=== PATIENT | female | born 1975 | race American Indian/Alaskan Native ===

== ENCOUNTER 2017-09-12 08:41 | Emergency (ER) | payer BC ==
[2017-09-12 09:05] VITALS: BP 178/68
--- NOTE | 2017-09-12 11:03 | Emergency Department Report ---
Minor Respiratory - HPI Chief Complaint: Upper Respiratory Infection Stated Complaint: COUGH Time Seen by Provider: 09/12/17 09:49 Duration: 6 days Pain Location: Other (cough and congestion) Severity: mild Minor Respiratory: Yes Rhinorrhea, Yes Able to Tolerate Fluids, Yes Cough, Yes Sick Contacts, No Sore Throat, No Ear Pain, No Hemoptysis, No Chest Pain, No Shortness of Breath, No Fever Other History: This is a 41 y.o. female that presents with cough and congestion for 6 days. History of hypertension. Patient went to Urgent Care Thursday and given medrol dose pack and benzonatate for URI. Patients reports coughing up yellow mucous and feeling chest tightness with each cough. States she is feeling better but wanted to know why she can't stop coughing. Denies chest pain , SOB, weakness, fever, nausea, vomiting, or abdominal pain. ED Review of Systems ROS: Stated complaint: COUGH Other details as noted in HPI Constitutional: denies: chills, fever ENT: congestion. denies: ear pain, throat pain, dental pain, hearing loss, epistaxis Respiratory: cough. denies: orthopnea, shortness of breath, SOB with exertion, SOB at rest, stridor, wheezing Cardiovascular: denies: chest pain, palpitations Endocrine: no symptoms reported Gastrointestinal: denies: abdominal pain, nausea, diarrhea Musculoskeletal: denies: back pain, joint swelling, arthralgia, myalgia Neurological: denies: headache, weakness, numbness, paresthesias Psychiatric: denies: anxiety, depression ED Past Medical Hx - Past Medical History Previous Medical History?: No - Surgical History Past Surgical History?: Yes Additional Surgical History: x 2 - Social History Smoking Status: Never Smoker Substance Use Type: None - Medications Home Medications: Home Medications Medication Instructions Recorded Confirmed Last Taken Type Pseudoeph/Dm/Guaifen/Acetamin 1 each PO BID 7 Days #14 tablet 09/12/17 Unknown Rx [Duraflu [id number] mg Tab] Minor Respiratory Exam - Exam General: Vital signs noted. No distress. Alert and acting appropriately. HEENT: Yes Moist Mucous Membranes, Yes Rhinorrhea, No Pharyngeal Erythema, No Pharyngeal Exudates, No Conjuctival Injection, No Frontal Tenderness, No Maxillary Tenderness Ear: Neither TM Bulge, Neither TM Erythema, Neither EAC Pain, Neither EAC Discharge Neck: Yes Supple, No Adenopathy Lungs: Yes Good Air Exchange, Yes Cough, No Wheezes, No Ronchi, No Stridor, No Labored Respirations, No Retractions, No Use of Accessory Muscles, No Other Abnormal Lung Sounds Heart: Yes Regular, No Murmur Abdomen: Yes Normal Bowel Sounds, No Tenderness, No Peritoneal Signs Skin: No Rash, No Edema Neurologic: Alert and oriented, no deficits. Musculoskeletal: Unremarkable. ED Course Vital Signs 09/12/17 09/12/17 09:03 09:12 Temperature 98.6 F 98.6 F Pulse Rate 72 72 Respiratory 18 18 Rate Blood Pressure 178/68 Blood Pressure 178/68 [Right] O2 Sat by Pulse 100 Oximetry ED Medical Decision Making - Medical Decision Making This is a 41 y.o. female that presents with cough and congestion for 6 days. Currently taking medrol dose pack and benzonatate from Urgent Care. Patient examined by me and stable. No distress noted. No labs or radiograph ordered. Vitals stable. Normal assessment. Discharged home. Encouraged to do supportive care for URI. Start Return to work tomorrow. Critical care attestation.: If time is entered above; I have spent that time in minutes in the direct care of this critically ill patient, excluding procedure time. ED Disposition Clinical Impression: URI (upper respiratory infection) Qualifiers: URI type: acute nasopharyngitis (common cold) Qualified Code(s): J00 - Acute nasopharyngitis [common cold] Disposition: TO HOME OR SELFCARE Is pt being admited?: No Does the pt Need Aspirin: No Condition: Stable Instructions: Upper Respiratory Infection (ED), Cold Symptoms (ED) Additional Instructions: Increase fluid intake and rest. Wash hands frequently. Continue taking tylenol or ibuprofen to control fever. F/U with Primary Care Provider in 2-3 days. Return to ER if fever, SOB, or difficulty breathing after 48 hours of supportive care. Prescriptions: Pseudoeph/Dm/Guaifen/Acetamin [Duraflu [id number] mg Tab] 1 each PO BID 7 Days #14 tablet Referrals: [facility] [Outside] - 3-5 Days [facility] [Outside] - 3-5 Days [facility] [Outside] - 3-5 Days Forms: Work/School Release Form(ED) Time of Disposition: 11:05 Print Language: GREEK
== END 2017-09-12 11:15 | disposition home or self-care (01) ==
LOC: ED 08:41
DX: J06.9 Acute upper respiratory infection, unspecified (principal)
CPT/HCPCS: 99282

== ENCOUNTER 2017-11-17 22:04 | Inpatient (IN) | payer BC ==
[2017-11-17] MEDS ORDERED: ASPIRIN PO ONE (22:20)
[2017-11-17 23:16] LABS: Hematocrit 22.9 % (30.3-42.9); Hemoglobin 6.2 gm/dl (10.1-14.3); Mean Corpuscular HGB Conc 27 % (30-34); Mean Corpuscular Hemoglobin 14 pg (28-32); Mean Corpuscular Volume 53 fl (79-97); Red Blood Count 4.31 M/mm3 (3.65-5.03); Red Cell Distribution Width 29.1 % (13.2-15.2)
[2017-11-17 23:19] LABS: Platelet Count 1388 K/mm3 (140-440)
[2017-11-17 23:34] LABS: BUN/Creatinine Ratio 18; Blood Urea Nitrogen 14 mg/dL (7-17); Calcium 9.2 mg/dL (8.4-10.2); Hemolysis Index 0
--- NOTE | 2017-11-18 00:20 | Emergency Department Report ---
ED Chest Pain HPI - General Chief Complaint: Chest Pain Stated Complaint: CHEST PAIN, BACK PAIN Time Seen by Provider: 11/18/17 00:15 Source: patient Mode of arrival: Ambulatory Limitations: No Limitations - History of Present Illness MD Complaint: chest pain -: Gradual Onset: during rest Pain Location: substernal, left chest Pain Radiation: none Severity: moderate Severity scale (0 -10): 5 Quality: heaviness, sharp Consistency: constant Improves With: nothing Worsens With: nothing re: denies: nausea, vomting Other Symptoms: denies: cough Treatments Prior to Arrival: none Aspirin use within the Past 7 Days: (1) Yes - Related Data On Oral Contraceptives: No Previous Rx's Medication Instructions Recorded Last Taken Type Pseudoeph/Dm/Guaifen/Acetamin 1 each PO BID 7 Days #14 tablet 09/12/17 Unknown Rx [Duraflu [id number] mg Tab] Allergies Allergy/AdvReac Type Severity Reaction Status Date / Time No Known Allergies Allergy Verified 11/17/17 22:14 Heart Score - HEART Score History: Moderately suspicious EKG: Non-specific Age: < 45 Risk factors: No known risk factors Troponin: < normal limit HEART Score: 2 - Critical Actions Critical Actions: 0-3 pts:0.9-1.7%risk of adverse cardiac event.Candidate for discharge ED Review of Systems ROS: Stated complaint: CHEST PAIN, BACK PAIN Other details as noted in HPI Comment: All other systems reviewed and negative Constitutional: denies: chills, fever Eyes: denies: eye pain, vision change ENT: denies: ear pain Respiratory: shortness of breath. denies: cough Cardiovascular: chest pain. denies: palpitations Endocrine: no symptoms reported Gastrointestinal: denies: abdominal pain, nausea, vomiting, diarrhea Genitourinary: denies: dysuria, frequency Musculoskeletal: denies: back pain, joint swelling Skin: denies: rash, change in color Neurological: denies: headache, numbness, paresthesias Psychiatric: denies: anxiety, depression Hematological/Lymphatic: denies: easy bleeding, easy bruising ED Past Medical Hx - Past Medical History Hx Hypertension: Yes - Surgical History Additional Surgical History: x 2 - Social History Smoking Status: Never Smoker Substance Use Type: Alcohol - Medications Home Medications: Home Medications Medication Instructions Recorded Confirmed Last Taken Type Pseudoeph/Dm/Guaifen/Acetamin 1 each PO BID 7 Days #14 tablet 09/12/17 Unknown Rx [Duraflu [id number] mg Tab] ED Physical Exam - General Limitations: No Limitations General appearance: alert, in no apparent distress - Head Head exam: Present: atraumatic, normocephalic, normal inspection - Eye Eye exam: Present: normal appearance, PERRL, EOMI Pupils: Present: normal accommodation - ENT ENT exam: Present: normal exam, normal orophraynx, mucous membranes moist - Neck Neck exam: Present: normal inspection, full ROM. Absent: tenderness - Respiratory Respiratory exam: Present: normal lung sounds bilaterally. Absent: wheezes, rhonchi - Cardiovascular Cardiovascular Exam: Present: regular rate, normal rhythm, normal heart sounds - GI/Abdominal GI/Abdominal exam: Present: soft, normal bowel sounds. Absent: distended, tenderness, guarding, rebound - Rectal Rectal exam: Present: normal inspection, normal rectal tone, heme (-) stool, hemorrhoids (External ), other (Femal Charperone was MS. Rigo RN.). Absent : bloody stool, tenderness - Extremities Exam Extremities exam: Present: normal inspection, full ROM, normal capillary refill. Absent: tenderness - Back Exam Back exam: Present: normal inspection, full ROM. Absent: tenderness - Neurological Exam Neurological exam: Present: alert, oriented X3, CN II-XII intact - Psychiatric Psychiatric exam: Present: normal affect, normal mood. Absent: depressed, anxious - Skin Skin exam: Present: warm, dry, intact, normal color. Absent: rash ED Course Vital Signs 11/17/17 22:15 Temperature 99.8 F H Pulse Rate 99 H Respiratory 18 Rate Blood Pressure 176/80 O2 Sat by Pulse 100 Oximetry - Reevaluation(s) Reevaluation #1: 11/18/17 01:59 I discussed outpatient care with the hospitalist on-call Dr Coronado. He will admit the patient to the hospital for further evaluation and management. JUSTO score - Justo Score Age > 65: (0) No Aspirin use within the Past 7 Days: (1) Yes 3 or more CAD Risk Factors: (0) No 2 or more Angina events in past 24 hrs: (0) No Known CAD with more than 50% Stenosis: (0) No Elevated Cardiac Markers: (0) No ST Deviation Greater than 0.5mm: (0) No JUSTO Score: 1 ED Medical Decision Making - Lab Data Result diagrams: 11/17/17 22:49 11/17/17 22:49 - EKG Data -: EKG Interpreted by Me EKG shows normal: sinus rhythm Rate: normal (98) - EKG Data When compared to previous EKG there are: previous EKG unavailable Interpretation: nonspecific ST-T wave josse, other (Incomplete RBBB.) - Radiology Data Radiology results: report reviewed, image reviewed - Medical Decision Making Chest Pain. Critical care attestation.: If time is entered above; I have spent that time in minutes in the direct care of this critically ill patient, excluding procedure time. ED Disposition Clinical Impression: Thrombocytosis, Symptomatic anemia Chest pain Qualifiers: Chest pain type: unspecified Qualified Code(s): R07.9 - Chest pain, unspecified Disposition: OP ADMIT IP TO THIS HOSP Is pt being admited?: Yes Does the pt Need Aspirin: Yes Condition: Stable Instructions: Chest Pain (ED) Referrals: PRIMARY CARE, [Primary Care Provider] - 3-5 Days Time of Disposition: 00:49
[2017-11-18] MEDS ORDERED: ASPIRIN ONE (00:30)
[2017-11-18] MEDS ORDERED: MORPHINE IV ONE (00:45)
[2017-11-18] MEDS ORDERED: ZOFRAN ODT PO ONE (00:46)
[2017-11-18] MEDS ORDERED: NACL 0.9% 500 ML 500 ML IV ONE (00:48)
[2017-11-18 01:26] LABS: Band Neutrophils # (Manual) 0.6 K/mm3; Monocytes % (Manual) 0 % (0.0-7.3); Total Cells Counted 200
[2017-11-18 01:28] LABS: Anisocytosis 3+; Hypochromasia 3+; Platelet Estimate Appears Increased
[2017-11-18 01:33] LABS: INR 1.11 (0.87-1.13)
[2017-11-18 01:34] LABS: Partial Thromboplastin Time 38.7 Sec. (24.2-36.6)
[2017-11-18 01:40] LABS: Bilirubin,Urine NEG (Negative); Blood,Urine MOD (Negative); Color,Urine Yellow (Yellow); HCG Qualitative,Urine Negative (Negative); Mucus,Urine FEW /HPF; Protein,Urine <15 mg/dL mg/dL (Negative); Urobilinogen,Urine < 2.0 mg/dL (<2.0)
[2017-11-18] MEDS ORDERED: ZOFRAN ONE ×3 (02:58→08:11)
[2017-11-18] MEDS ORDERED: MORPHINE ONE ×3 (02:58→08:12)
[2017-11-18] MEDS ORDERED: NACL 0.9% 500 ML 500 ML ONE ×2 (02:59→03:48)
[2017-11-18] MEDS ORDERED: NITRO-BID 2% TP ONE (04:10)
[2017-11-18] MEDS ORDERED: TYLENOL ONE (04:20)
[2017-11-18] MEDS: NITRO-BID 2% TP SCH ×4 (04:33→19:00)
[2017-11-18] MEDS: ZOFRAN IV PRN (08:12)
[2017-11-18] MEDS: MORPHINE IV PRN ×4 (08:14→21:24)
[2017-11-18] MEDS ORDERED: LEXISCAN IV NR (09:44)
[2017-11-18] MEDS ORDERED: ROCEPHIN/NS 1 GM/50 ML 1 GM/50 ML BAG IV SCH (10:00)
[2017-11-18] MEDS: cefTRIAXone 1 GM in NACL 0.9% 20 ML IV SCH (12:00)
[2017-11-18] MEDS: ASPIRIN PO SCH (12:00)
--- NOTE | 2017-11-18 13:16 | History and Physical Report ---
CHIEF COMPLAINT: Chest pain. Other complaint includes back pain and weakness. HISTORY OF PRESENT ILLNESS: The patient is a 42-year-old female, who presented to the Emergency Room complaining of substernal chest pain that does not radiate with severity of 5/0-10 and appears as sharp pain and also heaviness. The pain is not affected by movement or breathing. The pain is associated with shortness of breath, nausea, vomiting, and headache. There is no history of dizziness. No history of cough, fever, or chills. The patient also admitted to having heavy menstrual bleeding. PAST MEDICAL HISTORY: Pertinent for hypertension, anemia, and heavy menstrual cycle. PAST SURGICAL HISTORY: Pertinent for C-sections x 2. FAMILY HISTORY: Noncontributory. SOCIAL HISTORY: The patient does not smoke, drinks alcohol occasionally. Does not use illicit drugs. MEDICATIONS: The patient is on Duraflu 325 x 20 x 200 x 60 mg 1 by mouth twice daily. ALLERGIES: There are no known drug allergies. REVIEW OF SYSTEMS: CONSTITUTIONAL: There is no fever, no chills, no diaphoresis. HEENT: There is headache, but no sore throat. CARDIOVASCULAR SYSTEM: Chest pain is present and there is no orthopnea. RESPIRATORY SYSTEM: Shortness of breath is present. There is no cough. GASTROINTESTINAL SYSTEM: There is history of nausea and vomiting, but no abdominal pain, no diarrhea or constipation. NEUROLOGICAL: There is no numbness, no dizziness, no altered mental status, though she has headache. MUSCULOSKELETAL SYSTEM: There is no joint pain or swelling. DERMATOLOGICAL SYSTEM: There is no skin rash or itching. GENITOURINARY SYSTEM: There is no dysuria, hematuria, or flank pain. Rest of system review is normal. PHYSICAL EXAMINATION: GENERAL: At the time of exam, the patient was found to be alert, oriented x 3 and not in acute distress. VITAL SIGNS: Shows temperature of 99.8, pulse of 91, blood pressure 161/71, O2 sat of 99% to 100% on room air. HEENT: Showed pupils to be equal, round, reactive to light and accommodation. Extraocular muscles are intact. NECK: Supple with no JVD or carotid bruit. CARDIOVASCULAR system: Show normal first and second heart sounds with no gallops or murmur. RESPIRATORY SYSTEM: Show good air entry on both sides of the lungs with no abnormal breath sounds. GASTROINTESTINAL SYSTEM: Show abdomen to be full, soft, nontender with no organomegaly or rigidity. NEUROLOGICAL SYSTEM: Show no focal deficits. MUSCULOSKELETAL SYSTEM: Show no joint swelling. DERMATOLOGICAL SYSTEM: Show no skin rash. GENITOURINARY SYSTEM: Showing no costovertebral angle tenderness. PERTINENT LABORATORY AND IMAGING STUDIES: The patient has no imaging studies done at this time. The patient's lab test shows CBC with high white count of 22 ,000, low hemoglobin of 6.2, low hematocrit of 22.9 with very high platelet count of 1388 which is marked as highly critical suggestive of thrombocythemia. CBC differential showed high segmented neutrophil of 90% and also the basophil show a high differential count of 2%. The patient's coagulation studies were unremarkable. Chemistry came back unremarkable except for low CO2 of 20. The patient's urinalysis show high urine leukocyte esterase and high urine wbc's of 62 as well as high urine rbc's with negative urine nitrite and negative urine test. DIAGNOSES: 1.Atypical Chest pain. 2. Anemia. 3. Urinary tract infection. 4. Thrombocythemia. PLAN: The patient will be admitted to medical floor on telemetry and will remain n.p.o. for Lexiscan stress test in the morning. Care of plan: 1. The patient will have cardiac enzymes involving troponin, total CK, and CK- MB checked q.6 hours x 2 more levels. 2. The patient will continue the order for blood transfusion requested in the Emergency Room. 3. The patient will have CBC checked in the morning without differential. 4. The patient will be on Tylenol 650 mg by mouth every 4 hours for fever and headache and will be on aspirin 325 mg by mouth daily. 5. The patient will be on IV ceftriaxone 1 gram daily for treatment of UTI. 6. The patient will be on IV morphine 2 mg every 3 hours as needed for pain. 7. The patient will be on Zofran 4 mg IV every 8 hours as needed for nausea and vomiting. 8. The patient will be on nitro paste half inch to anterior chest wall t.i.d. MTDD
[2017-11-18 13:29] LABS: Mean Corpuscular HGB Conc 29 % (30-34); Red Blood Count 4.94 M/mm3 (3.65-5.03)
[2017-11-18 13:31] LABS: Hematocrit 29.5 % (30.3-42.9); Hemoglobin 8.6 gm/dl (10.1-14.3); Mean Corpuscular Hemoglobin 17 pg (28-32); Mean Corpuscular Volume 60 fl (79-97); Red Cell Distribution Width 36.5 % (13.2-15.2)
[2017-11-18 13:33] LABS: Platelet Count 1238 K/mm3 (140-440)
[2017-11-18 13:50] LABS: Creatine Kinase MB < 1.0 ng/mL (0.0-4.0)
[2017-11-18 14:18] LABS: Band Neutrophils # (Manual) 0.6 K/mm3; Eosinophils % (Manual) 0 % (0.0-4.3); Total Cells Counted 100
[2017-11-18 14:21] LABS: Anisocytosis 2+; Hypochromasia 2+; Poikilocytosis 2+
[2017-11-18 14:22] LABS: Ovalocytes 1+; Tear Drop Cells 1+
[2017-11-18 14:23] LABS: Platelet Estimate Appe
--- NOTE | 2017-11-18 16:17 | Event Note ---
Date: 11/18/17 Patient was seen and evaluated this morning, patient was admitted this morning. H&P, imaging and labs were reviewed. Patient has chest pain, stress test done. Patient has severe anemia and transfused with 1 unit of blood and posttransfusion hemoglobin is stable.
[2017-11-18] MEDS: NORVASC PO SCH (17:34)
[2017-11-19] MEDS: MORPHINE IV PRN ×2 (04:51→09:18)
[2017-11-19] MEDS: NITRO-BID 2% TP SCH (06:47)
[2017-11-19 08:30] LABS: BUN/Creatinine Ratio 14; Blood Urea Nitrogen 11 mg/dL (7-17); Calcium 8.8 mg/dL (8.4-10.2); Hemolysis Index 99
[2017-11-19 08:38] LABS: Hematocrit 29.2 % (30.3-42.9); Hemoglobin 8.1 gm/dl (10.1-14.3); Mean Corpuscular HGB Conc 28 % (30-34); Mean Corpuscular Hemoglobin 17 pg (28-32); Mean Corpuscular Volume 61 fl (79-97); Red Blood Count 4.79 M/mm3 (3.65-5.03); Red Cell Distribution Width 35.9 % (13.2-15.2)
--- NOTE | 2017-11-19 09:02 | Treadmill Report ---
ORDERING PHYSICIAN: Sara Carolina MD INDICATION: Chest pain. FINDINGS: There is no scintigraphic evidence of myocardial ischemia. There is a small fixed mild anterior wall defect due to overlying breast attenuation artifact. The left ventricle is normal in size and systolic function. The left ventricular ejection fraction is 66%. There is normal wall motion and wall thickening noted on gated imaging. CONCLUSION: 1. This is a low risk myocardial perfusion scan associated with 1-year cardiovascular event rate of less than 1%. 2. No scintigraphic evidence of myocardial ischemia. 3. Small and mild fixed anterior wall defect due to overlying breast attenuation artifact. 4. Normal left ventricular size and systolic function. [facility]
[2017-11-19] MEDS ORDERED: APRESOLINE IV PRN (09:15)
[2017-11-19] MEDS: ASPIRIN PO SCH (09:21)
[2017-11-19] MEDS: NORVASC PO SCH (09:21)
[2017-11-19] MEDS: TYLENOL PO PRN ×2 (09:22)
[2017-11-19] MEDS: cefTRIAXone 1 GM in NACL 0.9% 20 ML IV SCH (11:00)
[2017-11-19] MEDS: ZOFRAN IV PRN (11:35)
--- NOTE | 2017-11-19 12:21 | Hem/Onc Consultation ---
History of Present Illness - Reason for Consult Consult date: 11/19/17 - History of Present Illness dictated Medications and Allergies Allergies Allergy/AdvReac Type Severity Reaction Status Date / Time No Known Allergies Allergy Verified 11/17/17 22:14 Home Medications Medication Instructions Recorded Confirmed Last Taken Type No Known Home Medications [No 11/18/17 11/18/17 Unknown History Reported Home Medications] Active Meds: Active Medications Acetaminophen (Tylenol) 650 mg PO Q4H PRN PRN Reason: For Pain/Fever/Headache Last Admin: 11/19/17 09:22 Dose: 650 mg Amlodipine Besylate (Norvasc) 5 mg PO QDAY [facility] Last Admin: 11/19/17 09:21 Dose: 5 mg Aspirin (Aspirin) 325 mg PO QDAY [facility] Last Admin: 11/19/17 09:21 Dose: 325 mg Hydralazine HCl (Apresoline) 20 mg IV Q4HR PRN PRN Reason: Hypertension Last Admin: 11/19/17 10:38 Dose: 20 mg Ceftriaxone Sodium 1 gm/ (Sodium Chloride) 20 mls @ 2 mls/min IV Q24HR [facility] Last Admin: 11/18/17 12:00 Dose: 2 mls/min Ondansetron HCl (Zofran) 4 mg IV Q8H PRN PRN Reason: Nausea And Vomiting Last Admin: 11/19/17 11:35 Dose: 4 mg Oxycodone/Acetaminophen (Percocet 5/325) 2 tab PO Q6H PRN PRN Reason: Pain, Moderate (4-6) Exam - Constitutional Vitals: Last Vital Signs Temp 99.4 F 11/19/17 06:58 Pulse 102 H 11/19/17 10:38 Resp 20 11/19/17 06:58 BP 197/90 11/19/17 10:38 Pulse Ox 96 11/19/17 08:00 Results - Labs lab Results: Laboratory Results - last 24 hr 11/18/17 11/18/17 11/19/17 12:56 12:56 07:15 WBC 20.7 H 22.7 H RBC 4.94 4.79 Hgb 8.6 L 8.1 L Hct 29.5 L D 29.2 L MCV 60 L 61 L MCH 17 L 17 L MCHC 29 L 28 L RDW 36.5 H 35.9 H Plt Count 1238 H* Add Manual Diff Complete Total Counted 100 Seg Neuts % (Manual) 82.0 H Band Neutrophils % 3.0 Lymphocytes % (Manual) 7.0 L Reactive Lymphs % (Man) 0 Monocytes % (Manual) 4.0 Eosinophils % (Manual) 0 Basophils % (Manual) 3.0 H Metamyelocytes % 1.0 Myelocytes % 0 Promyelocytes % 0 Blast Cells % 0 Nucleated RBC % 2.0 H Seg Neutrophils # Man 17.0 H Band Neutrophils # 0.6 Lymphocytes # (Manual) 1.4 Abs React Lymphs (Man) 0.0 Monocytes # (Manual) 0.8 Eosinophils # (Manual) 0.0 Basophils # (Manual) 0.6 H Metamyelocytes # 0.2 Myelocytes # 0.0 Promyelocytes # 0.0 Blast Cells # 0.0 WBC Morphology Not Reportable Hypersegmented Neuts Not Reportable Hyposegmented Neuts Not Reportable Hypogranular Neuts Not Reportable Smudge Cells Not Reportable Toxic Granulation Not Reportable Toxic Vacuolation Not Reportable Dohle Bodies Not Reportable Pelger-Huet Anomaly Not Reportable Harpal Rods Not Reportable Platelet Estimate Appe Clumped Platelets Not Reportable Plt Clumps, EDTA Not Reportable Large Platelets Not Reportable Giant Platelets Not Reportable Platelet Satelliting Not Reportable Plt Morphology Comment Not Reportable RBC Morphology Not Reportable Dimorphic RBCs Not Reportable Polychromasia Few Hypochromasia 2+ Poikilocytosis 2+ Anisocytosis 2+ Microcytosis 2+ Macrocytosis Not Reportable Spherocytes Not Reportable Pappenheimer Bodies Not Reportable Sickle Cells Not Reportable Target Cells Not Reportable Tear Drop Cells 1+ Ovalocytes 1+ Helmet Cells Not Reportable [place] Bodies Not Reportable [place] Rings Not Reportable [place] Cells Not Reportable Bite Cells Not Reportable Crenated Cell Not Reportable Elliptocytes 1+ Acanthocytes (Spur) Not Reportable Rouleaux Not Reportable Hemoglobin C Crystals Not Reportable Schistocytes Not Reportable Malaria parasites Not Reportable Rakesh Bodies Not Reportable Hem Pathologist Commnt No Sodium Potassium Chloride Carbon Dioxide Anion Gap BUN Creatinine Estimated GFR BUN/Creatinine Ratio Glucose Calcium Total Creatine Kinase 62 CK-MB (CK-2) < 1.0 CK-MB (CK-2) Rel Index 1.6 Troponin T < 0.010 11/19/17 07:15 WBC RBC Hgb Hct MCV MCH MCHC RDW Plt Count Add Manual Diff Total Counted Seg Neuts % (Manual) Band Neutrophils % Lymphocytes % (Manual) Reactive Lymphs % (Man) Monocytes % (Manual) Eosinophils % (Manual) Basophils % (Manual) Metamyelocytes % Myelocytes % Promyelocytes % Blast Cells % Nucleated RBC % Seg Neutrophils # Man Band Neutrophils # Lymphocytes # (Manual) Abs React Lymphs (Man) Monocytes # (Manual) Eosinophils # (Manual) Basophils # (Manual) Metamyelocytes # Myelocytes # Promyelocytes # Blast Cells # WBC Morphology Hypersegmented Neuts Hyposegmented Neuts Hypogranular Neuts Smudge Cells Toxic Granulation Toxic Vacuolation Dohle Bodies Pelger-Huet Anomaly Harpal Rods Platelet Estimate Clumped Platelets Plt Clumps, EDTA Large Platelets Giant Platelets Platelet Satelliting Plt Morphology Comment RBC Morphology Dimorphic RBCs Polychromasia Hypochromasia Poikilocytosis Anisocytosis Microcytosis Macrocytosis Spherocytes Pappenheimer Bodies Sickle Cells Target Cells Tear Drop Cells Ovalocytes Helmet Cells [place] Bodies [place] Rings [place] Cells Bite Cells Crenated Cell Elliptocytes Acanthocytes (Spur) Rouleaux Hemoglobin C Crystals Schistocytes Malaria parasites Rakesh Bodies Hem Pathologist Commnt Sodium 137 Potassium 4.0 Chloride 103.5 Carbon Dioxide 19 L Anion Gap 19 BUN 11 Creatinine 0.8 Estimated GFR > 60 BUN/Creatinine Ratio 14 Glucose 74 Calcium 8.8 Total Creatine Kinase CK-MB (CK-2) CK-MB (CK-2) Rel Index Troponin T
[2017-11-19 12:45] LABS: Anisocytosis 2+; Eosinophils % (Manual) 0 % (0.0-4.3); Poikilocytosis 2+; Total Cells Counted 100
[2017-11-19 12:46] LABS: Hypochromasia 2+; Ovalocytes 1+; Tear Drop Cells 1+; Toxic Vacuolation 1+
[2017-11-19 12:47] LABS: Platelet Estimate Cons
[2017-11-19] MEDS: PERCOCET 5/325 PO PRN ×2 (12:59→19:16)
[2017-11-19 13:19] LABS: Platelet Count 650 K/mm3 (140-440)
[2017-11-19 15:35] LABS: % Iron Saturation 2.64 %
--- NOTE | 2017-11-19 16:22 | Progress Note ---
Assessment and Plan Assessment and plan: 42-year-old -Citizen Of [place] female with past medical history significant for morbid obesity presented to the emergency department complaining of chest and back pain Cardiac enzymes are negative, stress test was done and no acute ischemia seen. CTA was ordered and result is pending. - Pain control Sepsis secondary to UTI - evidenced by leukocytosis, fever and tachycardia - still shooting fever, urine culture and culture ordered Thrombocytosis - Hematology oncology consulted DVT prophylaxis History Interval history: patient was seen and evaluated this morning, patient still complaining chest and back pain. Hospitalist Physical - Physical exam Narrative exam: Not in cardiopulmonary distress. The patient is morbidly obese. Vital signs as documented. Head exam is unremarkable. No scleral icterus . Neck is without jugular venous distension, thyromegaly, or carotid bruits. Lungs are clear to auscultation. Cardiac exam reveals regular rate and Rhythm. First and second heart sounds normal. No murmurs, rubs or gallops. Abdominal exam reveals normal bowel sounds, no masses, no organomegaly and no aortic enlargement. Extremities are nonedematous and both femoral and pedal pulses are normal. ANIMAL RESEARCHER: Alert and oriented 3. No focal weakness. - Constitutional Vitals: Temp Pulse Resp BP Pulse Ox 99.4 F 102 H 20 197/90 96 11/19/17 06:58 11/19/17 10:38 11/19/17 06:58 11/19/17 10:38 11/19/17 08:00 Results - Labs CBC & Chem 7: 11/19/17 07:15 11/19/17 07:15 Labs: Laboratory Last Values WBC 22.7 K/mm3 (4.5-11.0) H 11/19/17 07:15 RBC 4.79 M/mm3 (3.65-5.03) 11/19/17 07:15 Hgb 8.1 gm/dl (10.1-14.3) L 11/19/17 07:15 Hct 29.2 % (30.3-42.9) L 11/19/17 07:15 MCV 61 fl (79-97) L 11/19/17 07:15 MCH 17 pg (28-32) L 11/19/17 07:15 MCHC 28 % (30-34) L 11/19/17 07:15 RDW 35.9 % (13.2-15.2) H 11/19/17 07:15 Plt Count 650 K/mm3 (140-440) H 11/19/17 07:15 Add Manual Diff Complete 11/19/17 07:15 Total Counted 100 11/19/17 07:15 Seg Neuts % (Manual) 80.0 % (40.0-70.0) H 11/19/17 07:15 Band Neutrophils % 0 % 11/19/17 07:15 Lymphocytes % (Manual) 10.0 % (13.4-35.0) L 11/19/17 07:15 Reactive Lymphs % (Man) 0 % 11/19/17 07:15 Monocytes % (Manual) 5.0 % (0.0-7.3) 11/19/17 07:15 Eosinophils % (Manual) 0 % (0.0-4.3) 11/19/17 07:15 Basophils % (Manual) 4.0 % (0.0-1.8) H 11/19/17 07:15 Metamyelocytes % 1.0 % 11/19/17 07:15 Myelocytes % 0 % 11/19/17 07:15 Promyelocytes % 0 % 11/19/17 07:15 Blast Cells % 0 % 11/19/17 07:15 Nucleated RBC % Not Reportable 11/19/17 07:15 Seg Neutrophils # Man 18.2 K/mm3 (1.8-7.7) H 11/19/17 07:15 Band Neutrophils # 0.0 K/mm3 11/19/17 07:15 Lymphocytes # (Manual) 2.3 K/mm3 (1.2-5.4) 11/19/17 07:15 Abs React Lymphs (Man) 0.0 K/mm3 11/19/17 07:15 Monocytes # (Manual) 1.1 K/mm3 (0.0-0.8) H 11/19/17 07:15 Eosinophils # (Manual) 0.0 K/mm3 (0.0-0.4) 11/19/17 07:15 Basophils # (Manual) 0.9 K/mm3 (0.0-0.1) H 11/19/17 07:15 Metamyelocytes # 0.2 K/mm3 11/19/17 07:15 Myelocytes # 0.0 K/mm3 11/19/17 07:15 Promyelocytes # 0.0 K/mm3 11/19/17 07:15 Blast Cells # 0.0 K/mm3 11/19/17 07:15 Pathologist Review 11/17/17 22:49 WBC Morphology Not Reportable 11/19/17 07:15 Hypersegmented Neuts Not Reportable 11/19/17 07:15 Hyposegmented Neuts Not Reportable 11/19/17 07:15 Hypogranular Neuts Not Reportable 11/19/17 07:15 Smudge Cells Not Reportable 11/19/17 07:15 Toxic Granulation Not Reportable 11/19/17 07:15 Toxic Vacuolation 1+ 11/19/17 07:15 Dohle Bodies Not Reportable 11/19/17 07:15 Pelger-Huet Anomaly Not Reportable 11/19/17 07:15 Harpal Rods Not Reportable 11/19/17 07:15 Platelet Estimate Cons 11/19/17 07:15 Clumped Platelets Not Reportable 11/19/17 07:15 Plt Clumps, EDTA Not Reportable 11/19/17 07:15 Large Platelets Not Reportable 11/19/17 07:15 Giant Platelets Not Reportable 11/19/17 07:15 Platelet Satelliting Not Reportable 11/19/17 07:15 Plt Morphology Comment Not Reportable 11/19/17 07:15 RBC Morphology Not Reportable 11/19/17 07:15 Dimorphic RBCs Not Reportable 11/19/17 07:15 Polychromasia Few 11/19/17 07:15 Hypochromasia 2+ 11/19/17 07:15 Poikilocytosis 2+ 11/19/17 07:15 Anisocytosis 2+ 11/19/17 07:15 Microcytosis 2+ 11/19/17 07:15 Macrocytosis Not Reportable 11/19/17 07:15 Spherocytes Not Reportable 11/19/17 07:15 Pappenheimer Bodies Not Reportable 11/19/17 07:15 Sickle Cells Not Reportable 11/19/17 07:15 Target Cells Not Reportable 11/19/17 07:15 Tear Drop Cells 1+ 11/19/17 07:15 Ovalocytes 1+ 11/19/17 07:15 Helmet Cells Not Reportable 11/19/17 07:15 [place] Bodies Not Reportable 11/19/17 07:15 [place] Rings Not Reportable 11/19/17 07:15 [place] Cells Not Reportable 11/19/17 07:15 Bite Cells Not Reportable 11/19/17 07:15 Crenated Cell Not Reportable 11/19/17 07:15 Elliptocytes 1+ 11/19/17 07:15 Acanthocytes (Spur) Not Reportable 11/19/17 07:15 Rouleaux Not Reportable 11/19/17 07:15 Hemoglobin C Crystals Not Reportable 11/19/17 07:15 Schistocytes Not Reportable 11/19/17 07:15 Malaria parasites Not Reportable 11/19/17 07:15 Percent Retic 2.50 % (0.78-2.58) 11/19/17 13:10 Rakesh Bodies Not Reportable 11/19/17 07:15 Hem Pathologist Commnt No 11/19/17 07:15 PT 14.9 Sec. (12.2-14.9) 11/18/17 00:24 INR 1.11 (0.87-1.13) 11/18/17 00:24 APTT 38.7 Sec. (24.2-36.6) H 11/18/17 00:24 Sodium 137 mmol/L (137-145) 11/19/17 07:15 Potassium 4.0 mmol/L (3.6-5.0) 11/19/17 07:15 Chloride 103.5 mmol/L (98-107) 11/19/17 07:15 Carbon Dioxide 19 mmol/L (22-30) L 11/19/17 07:15 Anion Gap 19 mmol/L 11/19/17 07:15 BUN 11 mg/dL (7-17) 11/19/17 07:15 Creatinine 0.8 mg/dL (0.7-1.2) 11/19/17 07:15 Estimated GFR > 60 ml/min 11/19/17 07:15 BUN/Creatinine Ratio 14 % 11/19/17 07:15 Glucose 74 mg/dL (65-100) 11/19/17 07:15 Calcium 8.8 mg/dL (8.4-10.2) 11/19/17 07:15 Iron 10 ug/dL (37-170) L 11/19/17 13:10 TIBC 379 mcg/dL (250-450) 11/19/17 13:10 % Saturation 2.64 % 11/19/17 13:10 Transferrin 321 mg/dl (192-382) 11/19/17 13:10 Ferritin 39.0 ng/mL (13.0-400.0) 11/19/17 13:10 Total Creatine Kinase 62 units/L (30-135) 11/18/17 12:56 CK-MB (CK-2) < 1.0 ng/mL (0.0-4.0) 11/18/17 12:56 CK-MB (CK-2) Rel Index 1.6 (0-4) 11/18/17 12:56 Troponin T < 0.010 ng/mL (0.00-0.029) 11/18/17 12:56 Vitamin B12 595.1 pg/mL (211-911) 11/19/17 13:10 Urine Color Yellow (Yellow) 11/18/17 01:07 Urine Turbidity Clear (Clear) 11/18/17 01:07 Urine pH 5.0 (5.0-7.0) 11/18/17 01:07 Ur Specific [place] 1.021 (1.003-1.030) 11/18/17 01:07 Urine Protein <15 mg/dl mg/dL (Negative) 11/18/17 01:07 Urine Glucose (UA) Neg mg/dL (Negative) 11/18/17 01:07 Urine Ketones Tr mg/dL (Negative) 11/18/17 01:07 Urine Blood Mod (Negative) 11/18/17 01:07 Urine Nitrite Neg (Negative) 11/18/17 01:07 Urine Bilirubin Neg (Negative) 11/18/17 01:07 Urine Urobilinogen < 2.0 mg/dL (<2.0) 11/18/17 01:07 Ur Leukocyte Esterase Lg (Negative) 11/18/17 01:07 Urine WBC (Auto) 62.0 /HPF (0.0-6.0) H 11/18/17 01:07 Urine RBC (Auto) 123.0 /HPF (0.0-6.0) 11/18/17 01:07 U Epithel Cells (Auto) 1.0 /HPF (0-13.0) 11/18/17 01:07 Urine Mucus Few /HPF 11/18/17 01:07 Urine HCG, Qual Negative (Negative) 11/18/17 01:07 Blood Type B POSITIVE 11/18/17 01:07 Antibody Screen Negative 11/18/17 01:07 Crossmatch See Detail 11/18/17 01:07
[2017-11-19] MEDS: LOPRESSOR PO SCH (21:30)
--- NOTE | 2017-11-19 22:43 | Consultation ---
REFERRING PHYSICIAN: Dr. Tipton. REASON FOR CONSULTATION: Thrombocytosis and anemia. HISTORY OF PRESENT ILLNESS: The patient is a 42-year-old female, who presented to the hospital with pain in the left side of the chest. She was found to have a hemoglobin of 6.2, white count 22, platelets of 1 million 388 thousand. The patient also had urinalysis, which showed wbc count of 62, although nitrites were negative. Because of thrombocytosis and anemia, Hematology consult was called. The patient did get 1 unit of packed RBCs. She is currently on antibiotics. The patient states that she has had thrombocytosis many years ago back in 2001. She says she was given medications and upon questioning, she thinks it may have been hydroxyurea, but she has not taken it for years and has not had any labs done in many years. She does have heavy periods. She states that she has had a bone marrow biopsy many years ago, but she does not know what her diagnosis was then. She denies any sickle cell disease. She denies any burning in the urine. She has had nausea and vomiting, which is also new. PAST MEDICAL HISTORY: Positive for some form of thrombocytosis back in 2001 when she states it ran high and was more than a million than 2. She states she did take some medications for it. SOCIAL HISTORY: Does not smoke. Occasional alcohol use. REVIEW OF SYSTEMS: Denies any history of blood clot in the past. Denies taking any blood thinners. Does not take any hormones. PHYSICAL EXAMINATION: GENERAL: The patient is awake and oriented. HEENT: Reveals pallor noted in the conjunctivae. CLEAR: Clear. There is tenderness in the left flank area. ABDOMEN: Soft. EXTREMITIES: No clubbing, cyanosis, or edema. LABORATORY DATA: Hemoglobin 8.1 today. MCV 61, white count 22.7, platelets are pending today. Yesterday's platelets were 1 million 238 thousand. ASSESSMENT: Thrombocytosis, which seems to be chronic in face of anemia and microcytosis, possibly related to iron deficiency, rule out primary bone marrow pathology. RECOMMENDATION AND PLAN: At this time, we will get iron studies. If she is low in iron, we will give her IV iron. If her iron studies are normal, we will be considering a bone marrow biopsy. The patient's white count is high. I ordered blood cultures, urine cultures and agree with antibiotics. [facility]# [id number] MAKENNA/AMANDO
[2017-11-20] MEDS: PERCOCET 5/325 PO PRN ×3 (03:59→20:22)
--- NOTE | 2017-11-20 09:21 | Hem/Onc Progress Note ---
Assessment and Plan Patient's iron studies show iron deficiency. Will go head and give her IV iron. Follow CBCs regularly. White count was elevated. We will continue to monitor Subjective Date of service: 11/20/17 Interval history: pt feels a little better. Objective - Constitutional Vitals: Last Vital Signs Temp 98.7 F 11/20/17 08:00 Pulse 83 11/20/17 08:00 Resp 18 11/20/17 08:00 BP 150/71 11/20/17 08:00 Pulse Ox 95 11/20/17 08:00 Pain Intensity (0-10): denies any pain General appearance: mild distress - Neck Neck: supple - Cardiovascular Rhythm: regular Extremities: No edema - Gastrointestinal General gastrointestinal: Present: soft, other (left flank tenderness) - Labs Lab Results: Laboratory Results - last 24 hr 11/19/17 11/19/17 11/19/17 07:15 13:10 13:10 Plt Count 650 H Add Manual Diff Complete Total Counted 100 Seg Neuts % (Manual) 80.0 H Band Neutrophils % 0 Lymphocytes % (Manual) 10.0 L Reactive Lymphs % (Man) 0 Monocytes % (Manual) 5.0 Eosinophils % (Manual) 0 Basophils % (Manual) 4.0 H Metamyelocytes % 1.0 Myelocytes % 0 Promyelocytes % 0 Blast Cells % 0 Nucleated RBC % Not Reportable Seg Neutrophils # Man 18.2 H Band Neutrophils # 0.0 Lymphocytes # (Manual) 2.3 Abs React Lymphs (Man) 0.0 Monocytes # (Manual) 1.1 H Eosinophils # (Manual) 0.0 Basophils # (Manual) 0.9 H Metamyelocytes # 0.2 Myelocytes # 0.0 Promyelocytes # 0.0 Blast Cells # 0.0 WBC Morphology Not Reportable Hypersegmented Neuts Not Reportable Hyposegmented Neuts Not Reportable Hypogranular Neuts Not Reportable Smudge Cells Not Reportable Toxic Granulation Not Reportable Toxic Vacuolation 1+ Dohle Bodies Not Reportable Pelger-Huet Anomaly Not Reportable Harpal Rods Not Reportable Platelet Estimate Cons Clumped Platelets Not Reportable Plt Clumps, EDTA Not Reportable Large Platelets Not Reportable Giant Platelets Not Reportable Platelet Satelliting Not Reportable Plt Morphology Comment Not Reportable RBC Morphology Not Reportable Dimorphic RBCs Not Reportable Polychromasia Few Hypochromasia 2+ Poikilocytosis 2+ Anisocytosis 2+ Microcytosis 2+ Macrocytosis Not Reportable Spherocytes Not Reportable Pappenheimer Bodies Not Reportable Sickle Cells Not Reportable Target Cells Not Reportable Tear Drop Cells 1+ Ovalocytes 1+ Helmet Cells Not Reportable [place] Bodies Not Reportable [place] Rings Not Reportable [place] Cells Not Reportable Bite Cells Not Reportable Crenated Cell Not Reportable Elliptocytes 1+ Acanthocytes (Spur) Not Reportable Rouleaux Not Reportable Hemoglobin C Crystals Not Reportable Schistocytes Not Reportable Malaria parasites Not Reportable Percent Retic Rakesh Bodies Not Reportable Hem Pathologist Commnt No Iron 10 L TIBC 379 % Saturation 2.64 Transferrin 321 Ferritin 39.0 Vitamin B12 Folate 11/19/17 11/19/17 11/19/17 13:10 13:10 13:10 Plt Count Add Manual Diff Total Counted Seg Neuts % (Manual) Band Neutrophils % Lymphocytes % (Manual) Reactive Lymphs % (Man) Monocytes % (Manual) Eosinophils % (Manual) Basophils % (Manual) Metamyelocytes % Myelocytes % Promyelocytes % Blast Cells % Nucleated RBC % Seg Neutrophils # Man Band Neutrophils # Lymphocytes # (Manual) Abs React Lymphs (Man) Monocytes # (Manual) Eosinophils # (Manual) Basophils # (Manual) Metamyelocytes # Myelocytes # Promyelocytes # Blast Cells # WBC Morphology Hypersegmented Neuts Hyposegmented Neuts Hypogranular Neuts Smudge Cells Toxic Granulation Toxic Vacuolation Dohle Bodies Pelger-Huet Anomaly Harpal Rods Platelet Estimate Clumped Platelets Plt Clumps, EDTA Large Platelets Giant Platelets Platelet Satelliting Plt Morphology Comment RBC Morphology Dimorphic RBCs Polychromasia Hypochromasia Poikilocytosis Anisocytosis Microcytosis Macrocytosis Spherocytes Pappenheimer Bodies Sickle Cells Target Cells Tear Drop Cells Ovalocytes Helmet Cells [place] Bodies [place] Rings [place] Cells Bite Cells Crenated Cell Elliptocytes Acanthocytes (Spur) Rouleaux Hemoglobin C Crystals Schistocytes Malaria parasites Percent Retic 2.50 Rakesh Bodies Hem Pathologist Commnt Iron TIBC % Saturation Transferrin Ferritin Vitamin B12 595.1 Folate 10.26
--- NOTE | 2017-11-20 09:49 | History and Physical Report ---
CHIEF COMPLAINT: Chest pain. Other complaint includes back pain and weakness. HISTORY OF PRESENT ILLNESS: The patient is a 42-year-old female, who presented to the Emergency Room complaining of substernal chest pain that does not radiate with severity of 5/0-10 and appears as sharp pain and also heaviness. The pain is not affected by movement or breathing. The pain is associated with shortness of breath, nausea, vomiting, and headache. There is no history of dizziness. No history of cough, fever, or chills. The patient also admitted to having heavy menstrual bleeding. PAST MEDICAL HISTORY: Pertinent for hypertension, anemia, and heavy menstrual cycle. PAST SURGICAL HISTORY: Pertinent for C-sections x 2. FAMILY HISTORY: Noncontributory. SOCIAL HISTORY: The patient does not smoke, drinks alcohol occasionally. Does not use illicit drugs. MEDICATIONS: The patient is on Duraflu 325 x 20 x 200 x 60 mg 1 by mouth twice daily. ALLERGIES: There are no known drug allergies. REVIEW OF SYSTEMS: CONSTITUTIONAL: There is no fever, no chills, no diaphoresis. HEENT: There is headache, but no sore throat. CARDIOVASCULAR SYSTEM: Chest pain is present and there is no orthopnea. RESPIRATORY SYSTEM: Shortness of breath is present. There is no cough. GASTROINTESTINAL SYSTEM: There is history of nausea and vomiting, but no abdominal pain, no diarrhea or constipation. NEUROLOGICAL: There is no numbness, no dizziness, no altered mental status, though she has headache. MUSCULOSKELETAL SYSTEM: There is no joint pain or swelling. DERMATOLOGICAL SYSTEM: There is no skin rash or itching. GENITOURINARY SYSTEM: There is no dysuria, hematuria, or flank pain. Rest of system review is normal. PHYSICAL EXAMINATION: GENERAL: At the time of exam, the patient was found to be alert, oriented x 3 and not in acute distress. VITAL SIGNS: Shows temperature of 99.8, pulse of 91, blood pressure 161/71, O2 sat of 99% to 100% on room air. HEENT: Showed pupils to be equal, round, reactive to light and accommodation. Extraocular muscles are intact. NECK: Supple with no JVD or carotid bruit. CARDIOVASCULAR SYSTEM: Show normal first and second heart sounds with no gallops or murmur. RESPIRATORY SYSTEM: Show good air entry on both sides of the lungs with no abnormal breath sounds. GASTROINTESTINAL SYSTEM: Show abdomen to be full, soft, nontender with no organomegaly or rigidity. NEUROLOGICAL SYSTEM: Show no focal deficits. MUSCULOSKELETAL SYSTEM: Show no joint swelling. DERMATOLOGICAL SYSTEM: Show no skin rash. GENITOURINARY SYSTEM: Showing no costovertebral angle tenderness. PERTINENT LABORATORY AND IMAGING STUDIES: The patient has no imaging studies done at this time. The patient's lab test shows CBC with high white count of 22,000, low hemoglobin of 6.2, low hematocrit of 22.9 with very high platelet count of 1388 which is marked as highly critical suggestive of thrombocythemia. CBC differential showed high segmented neutrophil of 90% and also the basophil show a high differential count of 2%. The patient's coagulation studies were unremarkable. Chemistry came back unremarkable except for low CO2 of 20. The patient's urinalysis show high urine leukocyte esterase and high urine wbc's of 62 as well as high urine rbc's with negative urine nitrite and negative urine test. DIAGNOSES: 1. Chest pain. 2. Anemia. 3. Urinary tract infection. 4. Thrombocythemia. PLAN: The patient will be admitted to medical floor on telemetry and will remain n.p.o. for Lexiscan stress test in the morning. CARE OF PLAN: 1. The patient will have cardiac enzymes involving troponin, total CK, and CK-MB checked q. 6 hours x 2 more levels. 2. The patient will continue the order for blood transfusion requested in the Emergency Room. 3. The patient will have CBC checked in the morning without differential. 4. The patient will be on Tylenol 650 mg by mouth every 4 hours for fever and headache and will be on aspirin 325 mg by mouth daily. 5. The patient will be on IV ceftriaxone 1 gram daily for treatment of UTI. 6. The patient will be on IV morphine 2 mg every 3 hours as needed for pain. 7. The patient will be on Zofran 4 mg IV every 8 hours as needed for nausea and vomiting. 8. The patient will be on nitro paste half inch to anterior chest wall t.i.d. JOB# [id number] OCN/NTS
[2017-11-20] MEDS ORDERED: FERRLECIT 125 MG in NACL 0.9% 100 ML IV ONE (10:00)
--- NOTE | 2017-11-20 10:00 | Treadmill Report ---
ORDERING PHYSICIAN: Sara Carolina MD INDICATION: Chest pain. FINDINGS: There is no scintigraphic evidence of myocardial ischemia. There is a small fixed mild anterior wall defect due to overlying breast attenuation artifact. The left ventricle is normal in size and systolic function. The left ventricular ejection fraction is 66%. There is normal wall motion and wall thickening noted on gated imaging. CONCLUSION: 1. This is a low risk myocardial perfusion scan associated with 1-year cardiovascular event rate of less than 1%. 2. No scintigraphic evidence of myocardial ischemia. 3. Small and mild fixed anterior wall defect due to overlying breast attenuation artifact. 4. Normal left ventricular size and systolic function. JOB# [id number] KATIE/AMANDO
[2017-11-20] MEDS: FEOSOL PO SCH ×2 (13:06→22:21)
[2017-11-20] MEDS: NORVASC PO SCH ×2 (13:07→19:08)
[2017-11-20] MEDS: LOPRESSOR PO SCH ×2 (13:07→19:09)
[2017-11-20] MEDS: LEVAQUIN 750MG/150ML 750 MG/150 ML BAG IV SCH (13:07)
[2017-11-20] MEDS: ASPIRIN PO SCH (13:07)
[2017-11-20 15:24] LABS: Mean Corpuscular HGB Conc 29 % (30-34); Red Blood Count 4.56 M/mm3 (3.65-5.03)
[2017-11-20 15:27] LABS: Hematocrit 27.3 % (30.3-42.9); Hemoglobin 7.9 gm/dl (10.1-14.3); Mean Corpuscular Hemoglobin 17 pg (28-32); Mean Corpuscular Volume 60 fl (79-97); Red Cell Distribution Width 37.5 % (13.2-15.2)
[2017-11-20 15:30] LABS: Platelet Count 1308 K/mm3 (140-440)
[2017-11-20 16:21] LABS: Total Cells Counted 100
[2017-11-20 16:22] LABS: Anisocytosis 2+; Giant Platelets Few; Hypochromasia 2+; Large Platelets Few; Macrocytosis 1+; Ovalocytes 1+; Poikilocytosis 3+; Target Cells Few; Tear Drop Cells Few
[2017-11-20 16:23] LABS: Platelet Estimate Consistent w Auto
--- NOTE | 2017-11-20 17:08 | Progress Note ---
Assessment and Plan Assessment and plan: 42-year-old -Citizen Of [place] female with past medical history significant for morbid obesity presented to the emergency department complaining of chest and back pain Cardiac enzymes are negative, stress test was done and no acute ischemia seen. CTA was ordered and result is pending. - Pain control Sepsis secondary to UTI - evidenced by leukocytosis, fever and tachycardia - still shooting fever, urine culture and culture ordered Left-sided pneumonia - Patient is on IV Levaquin Thrombocytosis - Hematology oncology consulted Iron deficiency anemia - Patient is on iron supplementation DVT prophylaxis - Lovenox Disposition - We will restart once the patient is fever free for 24 hours. History Interval history: patient was seen and evaluated this morning, patient still complaining chest and back pain. Patient had fever this morning. Hospitalist Physical - Physical exam Narrative exam: Not in cardiopulmonary distress. The patient is morbidly obese. Vital signs as documented. Head exam is unremarkable. No scleral icterus . Neck is without jugular venous distension, thyromegaly, or carotid bruits. Lungs are clear to auscultation. Cardiac exam reveals regular rate and Rhythm. First and second heart sounds normal. No murmurs, rubs or gallops. Abdominal exam reveals normal bowel sounds, no masses, no organomegaly and no aortic enlargement. Extremities are nonedematous and both femoral and pedal pulses are normal. CREDIT REVIEW ANALYST: Alert and oriented 3. No focal weakness. - Constitutional Vitals: Temp Pulse Resp BP Pulse Ox 98.3 F 97 H 18 179/87 99 11/20/17 12:51 11/20/17 12:51 11/20/17 12:51 11/20/17 12:51 11/20/17 12:51 Results - Labs CBC & Chem 7: 11/20/17 14:54 11/19/17 07:15 Labs: Laboratory Last Values WBC 19.9 K/mm3 (4.5-11.0) H 11/20/17 14:54 RBC 4.56 M/mm3 (3.65-5.03) 11/20/17 14:54 Hgb 7.9 gm/dl (10.1-14.3) L 11/20/17 14:54 Hct 27.3 % (30.3-42.9) L 11/20/17 14:54 MCV 60 fl (79-97) L 11/20/17 14:54 MCH 17 pg (28-32) L 11/20/17 14:54 MCHC 29 % (30-34) L 11/20/17 14:54 RDW 37.5 % (13.2-15.2) H 11/20/17 14:54 Plt Count 1308 K/mm3 (140-440) H* D 11/20/17 14:54 Add Manual Diff Complete 11/20/17 14:54 Total Counted 100 11/20/17 14:54 Seg Neuts % (Manual) 82.0 % (40.0-70.0) H 11/20/17 14:54 Band Neutrophils % 5.0 % 11/20/17 14:54 Lymphocytes % (Manual) 6.0 % (13.4-35.0) L 11/20/17 14:54 Reactive Lymphs % (Man) 1.0 % 11/20/17 14:54 Monocytes % (Manual) 2.0 % (0.0-7.3) 11/20/17 14:54 Eosinophils % (Manual) 1.0 % (0.0-4.3) 11/20/17 14:54 Basophils % (Manual) 3.0 % (0.0-1.8) H 11/20/17 14:54 Metamyelocytes % 0 % 11/20/17 14:54 Myelocytes % 0 % 11/20/17 14:54 Promyelocytes % 0 % 11/20/17 14:54 Blast Cells % 0 % 11/20/17 14:54 Nucleated RBC % Not Reportable 11/20/17 14:54 Seg Neutrophils # Man 16.3 K/mm3 (1.8-7.7) H 11/20/17 14:54 Band Neutrophils # 1.0 K/mm3 11/20/17 14:54 Lymphocytes # (Manual) 1.2 K/mm3 (1.2-5.4) 11/20/17 14:54 Abs React Lymphs (Man) 0.2 K/mm3 11/20/17 14:54 Monocytes # (Manual) 0.4 K/mm3 (0.0-0.8) 11/20/17 14:54 Eosinophils # (Manual) 0.2 K/mm3 (0.0-0.4) 11/20/17 14:54 Basophils # (Manual) 0.6 K/mm3 (0.0-0.1) H 11/20/17 14:54 Metamyelocytes # 0.0 K/mm3 11/20/17 14:54 Myelocytes # 0.0 K/mm3 11/20/17 14:54 Promyelocytes # 0.0 K/mm3 11/20/17 14:54 Blast Cells # 0.0 K/mm3 11/20/17 14:54 Pathologist Review 11/17/17 22:49 WBC Morphology Not Reportable 11/20/17 14:54 Hypersegmented Neuts Not Reportable 11/20/17 14:54 Hyposegmented Neuts Not Reportable 11/20/17 14:54 Hypogranular Neuts Not Reportable 11/20/17 14:54 Smudge Cells Not Reportable 11/20/17 14:54 Toxic Granulation Not Reportable 11/20/17 14:54 Toxic Vacuolation Not Reportable 11/20/17 14:54 Dohle Bodies Not Reportable 11/20/17 14:54 Pelger-Huet Anomaly Not Reportable 11/20/17 14:54 Harpal Rods Not Reportable 11/20/17 14:54 Platelet Estimate Consistent w auto 11/20/17 14:54 Clumped Platelets Not Reportable 11/20/17 14:54 Plt Clumps, EDTA Not Reportable 11/20/17 14:54 Large Platelets Few 11/20/17 14:54 Giant Platelets Few 11/20/17 14:54 Platelet Satelliting Not Reportable 11/20/17 14:54 Plt Morphology Comment Not Reportable 11/20/17 14:54 RBC Morphology Not Reportable 11/20/17 14:54 Dimorphic RBCs Not Reportable 11/20/17 14:54 Polychromasia 1+ 11/20/17 14:54 Hypochromasia 2+ 11/20/17 14:54 Poikilocytosis 3+ 11/20/17 14:54 Anisocytosis 2+ 11/20/17 14:54 Microcytosis 1+ 11/20/17 14:54 Macrocytosis 1+ 11/20/17 14:54 Spherocytes Not Reportable 11/20/17 14:54 Pappenheimer Bodies Not Reportable 11/20/17 14:54 Sickle Cells Not Reportable 11/20/17 14:54 Target Cells Few 11/20/17 14:54 Tear Drop Cells Few 11/20/17 14:54 Ovalocytes 1+ 11/20/17 14:54 Helmet Cells Not Reportable 11/20/17 14:54 [place] Bodies Not Reportable 11/20/17 14:54 [place] Rings Not Reportable 11/20/17 14:54 [place] Cells Not Reportable 11/20/17 14:54 Bite Cells Not Reportable 11/20/17 14:54 Crenated Cell Not Reportable 11/20/17 14:54 Elliptocytes 1+ 11/20/17 14:54 Acanthocytes (Spur) Not Reportable 11/20/17 14:54 Rouleaux Not Reportable 11/20/17 14:54 Hemoglobin C Crystals Not Reportable 11/20/17 14:54 Schistocytes Not Reportable 11/20/17 14:54 Malaria parasites Not Reportable 11/20/17 14:54 Percent Retic 2.50 % (0.78-2.58) 11/19/17 13:10 Rakesh Bodies Not Reportable 11/20/17 14:54 Hem Pathologist Commnt No 11/20/17 14:54 PT 14.9 Sec. (12.2-14.9) 11/18/17 00:24 INR 1.11 (0.87-1.13) 11/18/17 00:24 APTT 38.7 Sec. (24.2-36.6) H 11/18/17 00:24 Sodium 137 mmol/L (137-145) 11/19/17 07:15 Potassium 4.0 mmol/L (3.6-5.0) 11/19/17 07:15 Chloride 103.5 mmol/L (98-107) 11/19/17 07:15 Carbon Dioxide 19 mmol/L (22-30) L 11/19/17 07:15 Anion Gap 19 mmol/L 11/19/17 07:15 BUN 11 mg/dL (7-17) 11/19/17 07:15 Creatinine 0.8 mg/dL (0.7-1.2) 11/19/17 07:15 Estimated GFR > 60 ml/min 11/19/17 07:15 BUN/Creatinine Ratio 14 % 11/19/17 07:15 Glucose 74 mg/dL (65-100) 11/19/17 07:15 Calcium 8.8 mg/dL (8.4-10.2) 11/19/17 07:15 Iron 10 ug/dL (37-170) L 11/19/17 13:10 TIBC 379 mcg/dL (250-450) 11/19/17 13:10 % Saturation 2.64 % 11/19/17 13:10 Transferrin 321 mg/dl (192-382) 11/19/17 13:10 Ferritin 39.0 ng/mL (13.0-400.0) 11/19/17 13:10 Total Creatine Kinase 62 units/L (30-135) 11/18/17 12:56 CK-MB (CK-2) < 1.0 ng/mL (0.0-4.0) 11/18/17 12:56 CK-MB (CK-2) Rel Index 1.6 (0-4) 11/18/17 12:56 Troponin T < 0.010 ng/mL (0.00-0.029) 11/18/17 12:56 Vitamin B12 595.1 pg/mL (211-911) 11/19/17 13:10 Folate 10.26 ng/mL (7.3-26.0) 11/19/17 13:10 Urine Color Yellow (Yellow) 11/18/17 01:07 Urine Turbidity Clear (Clear) 11/18/17 01:07 Urine pH 5.0 (5.0-7.0) 11/18/17 01:07 Ur Specific [place] 1.021 (1.003-1.030) 11/18/17 01:07 Urine Protein <15 mg/dl mg/dL (Negative) 11/18/17 01:07 Urine Glucose (UA) Neg mg/dL (Negative) 11/18/17 01:07 Urine Ketones Tr mg/dL (Negative) 11/18/17 01:07 Urine Blood Mod (Negative) 11/18/17 01:07 Urine Nitrite Neg (Negative) 11/18/17 01:07 Urine Bilirubin Neg (Negative) 11/18/17 01:07 Urine Urobilinogen < 2.0 mg/dL (<2.0) 11/18/17 01:07 Ur Leukocyte Esterase Lg (Negative) 11/18/17 01:07 Urine WBC (Auto) 62.0 /HPF (0.0-6.0) H 11/18/17 01:07 Urine RBC (Auto) 123.0 /HPF (0.0-6.0) 11/18/17 01:07 U Epithel Cells (Auto) 1.0 /HPF (0-13.0) 11/18/17 01:07 Urine Mucus Few /HPF 11/18/17 01:07 Urine HCG, Qual Negative (Negative) 11/18/17 01:07 Blood Type B POSITIVE 11/18/17 01:07 Antibody Screen Negative 11/18/17 01:07 Crossmatch See Detail 11/18/17 01:07
[2017-11-20] MEDS ORDERED: LOPRESSOR PO SCH (17:11)
[2017-11-20] MEDS ORDERED: NORVASC PO SCH (17:11)
[2017-11-20] MEDS: LOVENOX SUB-Q SCH (22:21)
[2017-11-21 08:08] LABS: Mean Corpuscular HGB Conc 28 % (30-34); Red Blood Count 4.86 M/mm3 (3.65-5.03)
[2017-11-21 08:21] LABS: Hematocrit 29.2 % (30.3-42.9); Mean Corpuscular Hemoglobin 17 pg (28-32); Mean Corpuscular Volume 60 fl (79-97)
[2017-11-21 08:29] LABS: BUN/Creatinine Ratio 13; Blood Urea Nitrogen 9 mg/dL (7-17); Calcium 8.9 mg/dL (8.4-10.2); Hemolysis Index 0
[2017-11-21 08:58] LABS: Platelet Count 1269 K/mm3 (140-440)
[2017-11-21 09:57] LABS: Band Neutrophils # (Manual) 0.2 K/mm3; Total Cells Counted 100
[2017-11-21 09:58] LABS: Anisocytosis 3+; Hypochromasia 3+; Platelet Estimate Appears Increased
[2017-11-21 09:59] LABS: Tear Drop Cells Few
[2017-11-21] MEDS: ASPIRIN PO SCH (10:02)
[2017-11-21] MEDS: LOPRESSOR PO SCH ×2 (10:02→21:32)
[2017-11-21] MEDS: FEOSOL PO SCH ×2 (10:02→21:32)
[2017-11-21] MEDS: LEVAQUIN 750MG/150ML 750 MG/150 ML BAG IV SCH (10:02)
[2017-11-21] MEDS: PERCOCET 5/325 PO PRN ×2 (10:02→21:32)
[2017-11-21] MEDS: NORVASC PO SCH (10:03)
--- NOTE | 2017-11-21 12:15 | Hem/Onc Progress Note ---
Assessment and Plan 1- Iron deficiency anemia- receiving IV iron. 2- thrombocythemia- reactive related to iron deficiency. A myeloproliferative disorder is not completely ruled our. if platelets are not down, may need short term hydrea. Recheck CBC tomorrow Subjective Date of service: 11/21/17 Interval history: actively menstruating. Objective - Constitutional Vitals: Last Vital Signs Temp 99.1 F 11/21/17 10:11 Pulse 86 11/21/17 10:11 Resp 20 11/21/17 10:11 BP 156/77 11/21/17 10:11 Pulse Ox 96 11/21/17 10:11 General appearance: no acute distress - EENT ENT: hearing intact - Respiratory Respiratory: bilateral: CTA - Cardiovascular Rhythm: regular Heart Sounds: Present: S1 & S2 - Labs Lab Results: Laboratory Results - last 24 hr 11/20/17 11/21/17 11/21/17 14:54 06:45 06:45 WBC 19.9 H 18.6 H RBC 4.56 4.86 Hgb 7.9 L 8.0 L Hct 27.3 L 29.2 L MCV 60 L 60 L MCH 17 L 17 L MCHC 29 L 28 L RDW 37.5 H 37.0 H Plt Count 1308 H* D 1269 H* Baso % (Auto) Heart Specialist Add Manual Diff Complete Complete Total Counted 100 100 Seg Neuts % (Manual) 82.0 H 79.0 H Band Neutrophils % 5.0 1.0 Lymphocytes % (Manual) 6.0 L 9.0 L Reactive Lymphs % (Man) 1.0 0 Monocytes % (Manual) 2.0 2.0 Eosinophils % (Manual) 1.0 7.0 H Basophils % (Manual) 3.0 H 2.0 H Metamyelocytes % 0 0 Myelocytes % 0 0 Promyelocytes % 0 0 Blast Cells % 0 0 Nucleated RBC % Not Reportable Not Reportable Seg Neutrophils # Man 16.3 H 14.7 H Band Neutrophils # 1.0 0.2 Lymphocytes # (Manual) 1.2 1.7 Abs React Lymphs (Man) 0.2 0.0 Monocytes # (Manual) 0.4 0.4 Eosinophils # (Manual) 0.2 1.3 H Basophils # (Manual) 0.6 H 0.4 H Metamyelocytes # 0.0 0.0 Myelocytes # 0.0 0.0 Promyelocytes # 0.0 0.0 Blast Cells # 0.0 0.0 WBC Morphology Not Reportable Not Reportable Hypersegmented Neuts Not Reportable Not Reportable Hyposegmented Neuts Not Reportable Not Reportable Hypogranular Neuts Not Reportable Not Reportable Smudge Cells Not Reportable Not Reportable Toxic Granulation Not Reportable Not Reportable Toxic Vacuolation Not Reportable Not Reportable Dohle Bodies Not Reportable Not Reportable Pelger-Huet Anomaly Not Reportable Not Reportable Harpal Rods Not Reportable Not Reportable Platelet Estimate Consistent w auto Appears increased Clumped Platelets Not Reportable Not Reportable Plt Clumps, EDTA Not Reportable Not Reportable Large Platelets Few Not Reportable Giant Platelets Few Not Reportable Platelet Satelliting Not Reportable Not Reportable Plt Morphology Comment Not Reportable Not Reportable RBC Morphology Not Reportable Not Reportable Dimorphic RBCs Not Reportable Not Reportable Polychromasia 1+ Not Reportable Hypochromasia 2+ 3+ Poikilocytosis 3+ Not Reportable Anisocytosis 2+ 3+ Microcytosis 1+ 2+ Macrocytosis 1+ Not Reportable Spherocytes Not Reportable Not Reportable Pappenheimer Bodies Not Reportable Not Reportable Sickle Cells Not Reportable Not Reportable Target Cells Few Not Reportable Tear Drop Cells Few Few Ovalocytes 1+ Not Reportable Helmet Cells Not Reportable Not Reportable [place] Bodies Not Reportable Not Reportable [place] Rings Not Reportable Not Reportable [place] Cells Not Reportable Not Reportable Bite Cells Not Reportable Not Reportable Crenated Cell Not Reportable Not Reportable Elliptocytes 1+ 1+ Acanthocytes (Spur) Not Reportable Not Reportable Rouleaux Not Reportable Not Reportable Hemoglobin C Crystals Not Reportable Not Reportable Schistocytes Not Reportable Not Reportable Malaria parasites Not Reportable Not Reportable Rakesh Bodies Not Reportable Not Reportable Hem Pathologist Commnt No No Sodium 135 L Potassium 3.3 L Chloride 92.8 L Carbon Dioxide 24 Anion Gap 22 BUN 9 Creatinine 0.7 Estimated GFR > 60 BUN/Creatinine Ratio 13 Glucose 70 Calcium 8.9
--- NOTE | 2017-11-21 15:40 | Progress Note ---
Assessment and Plan Assessment and plan: 42-year-old -[place] female with past medical history significant for morbid obesity presented to the emergency department complaining of chest and back pain Cardiac enzymes are negative, stress test was done and no acute ischemia seen. CTA showed left sided pneumonia. - Pain control Sepsis secondary to UTI - evidenced by leukocytosis, fever and tachycardia - No fever in the last 24 hrs, leukocytosis is getting better Left-sided pneumonia - Patient is on IV Levaquin Thrombocytosis - Hematology oncology consulted - On IV iron therapy - will follow CBC Iron deficiency anemia - On IV iron therapy DVT prophylaxis - Lovenox Disposition - Will continue inpatient care. History Interval history: patient was seen and evaluated this morning, patient still complaining chest and back pain. patient is getting better. Hospitalist Physical - Physical exam Narrative exam: Not in cardiopulmonary distress. The patient is morbidly obese. Vital signs as documented. Head exam is unremarkable. No scleral icterus . Neck is without jugular venous distension, thyromegaly, or carotid bruits. Lungs creptations on the left lower lung zone. Cardiac exam reveals regular rate and Rhythm. Abdominal exam reveals normal bowel sounds. Extremities are nonedematous. SNAG GRINDER: Alert and oriented 3. - Constitutional Vitals: Temp Pulse Resp BP Pulse Ox 99.1 F 86 20 156/77 96 11/21/17 10:11 11/21/17 10:11 11/21/17 10:11 11/21/17 10:11 11/21/17 10:11 Results - Labs CBC & Chem 7: 11/21/17 06:45 11/21/17 06:45 Labs: Laboratory Last Values WBC 18.6 K/mm3 (4.5-11.0) H 11/21/17 06:45 RBC 4.86 M/mm3 (3.65-5.03) 11/21/17 06:45 Hgb 8.0 gm/dl (10.1-14.3) L 11/21/17 06:45 Hct 29.2 % (30.3-42.9) L 11/21/17 06:45 MCV 60 fl (79-97) L 11/21/17 06:45 MCH 17 pg (28-32) L 11/21/17 06:45 MCHC 28 % (30-34) L 11/21/17 06:45 RDW 37.0 % (13.2-15.2) H 11/21/17 06:45 Plt Count 1269 K/mm3 (140-440) H* 11/21/17 06:45 Baso % (Auto) Aerobics Teacher 11/21/17 06:45 Add Manual Diff Complete 11/21/17 06:45 Total Counted 100 11/21/17 06:45 Seg Neuts % (Manual) 79.0 % (40.0-70.0) H 11/21/17 06:45 Band Neutrophils % 1.0 % 11/21/17 06:45 Lymphocytes % (Manual) 9.0 % (13.4-35.0) L 11/21/17 06:45 Reactive Lymphs % (Man) 0 % 11/21/17 06:45 Monocytes % (Manual) 2.0 % (0.0-7.3) 11/21/17 06:45 Eosinophils % (Manual) 7.0 % (0.0-4.3) H 11/21/17 06:45 Basophils % (Manual) 2.0 % (0.0-1.8) H 11/21/17 06:45 Metamyelocytes % 0 % 11/21/17 06:45 Myelocytes % 0 % 11/21/17 06:45 Promyelocytes % 0 % 11/21/17 06:45 Blast Cells % 0 % 11/21/17 06:45 Nucleated RBC % Not Reportable 11/21/17 06:45 Seg Neutrophils # Man 14.7 K/mm3 (1.8-7.7) H 11/21/17 06:45 Band Neutrophils # 0.2 K/mm3 11/21/17 06:45 Lymphocytes # (Manual) 1.7 K/mm3 (1.2-5.4) 11/21/17 06:45 Abs React Lymphs (Man) 0.0 K/mm3 11/21/17 06:45 Monocytes # (Manual) 0.4 K/mm3 (0.0-0.8) 11/21/17 06:45 Eosinophils # (Manual) 1.3 K/mm3 (0.0-0.4) H 11/21/17 06:45 Basophils # (Manual) 0.4 K/mm3 (0.0-0.1) H 11/21/17 06:45 Metamyelocytes # 0.0 K/mm3 11/21/17 06:45 Myelocytes # 0.0 K/mm3 11/21/17 06:45 Promyelocytes # 0.0 K/mm3 11/21/17 06:45 Blast Cells # 0.0 K/mm3 11/21/17 06:45 Pathologist Review 11/17/17 22:49 WBC Morphology Not Reportable 11/21/17 06:45 Hypersegmented Neuts Not Reportable 11/21/17 06:45 Hyposegmented Neuts Not Reportable 11/21/17 06:45 Hypogranular Neuts Not Reportable 11/21/17 06:45 Smudge Cells Not Reportable 11/21/17 06:45 Toxic Granulation Not Reportable 11/21/17 06:45 Toxic Vacuolation Not Reportable 11/21/17 06:45 Dohle Bodies Not Reportable 11/21/17 06:45 Pelger-Huet Anomaly Not Reportable 11/21/17 06:45 Harpal Rods Not Reportable 11/21/17 06:45 Platelet Estimate Appears increased 11/21/17 06:45 Clumped Platelets Not Reportable 11/21/17 06:45 Plt Clumps, EDTA Not Reportable 11/21/17 06:45 Large Platelets Not Reportable 11/21/17 06:45 Giant Platelets Not Reportable 11/21/17 06:45 Platelet Satelliting Not Reportable 11/21/17 06:45 Plt Morphology Comment Not Reportable 11/21/17 06:45 RBC Morphology Not Reportable 11/21/17 06:45 Dimorphic RBCs Not Reportable 11/21/17 06:45 Polychromasia Not Reportable 11/21/17 06:45 Hypochromasia 3+ 11/21/17 06:45 Poikilocytosis Not Reportable 11/21/17 06:45 Anisocytosis 3+ 11/21/17 06:45 Microcytosis 2+ 11/21/17 06:45 Macrocytosis Not Reportable 11/21/17 06:45 Spherocytes Not Reportable 11/21/17 06:45 Pappenheimer Bodies Not Reportable 11/21/17 06:45 Sickle Cells Not Reportable 11/21/17 06:45 Target Cells Not Reportable 11/21/17 06:45 Tear Drop Cells Few 11/21/17 06:45 Ovalocytes Not Reportable 11/21/17 06:45 Helmet Cells Not Reportable 11/21/17 06:45 [place] Bodies Not Reportable 11/21/17 06:45 [place] Rings Not Reportable 11/21/17 06:45 [place] Cells Not Reportable 11/21/17 06:45 Bite Cells Not Reportable 11/21/17 06:45 Crenated Cell Not Reportable 11/21/17 06:45 Elliptocytes 1+ 11/21/17 06:45 Acanthocytes (Spur) Not Reportable 11/21/17 06:45 Rouleaux Not Reportable 11/21/17 06:45 Hemoglobin C Crystals Not Reportable 11/21/17 06:45 Schistocytes Not Reportable 11/21/17 06:45 Malaria parasites Not Reportable 11/21/17 06:45 Percent Retic 2.50 % (0.78-2.58) 11/19/17 13:10 Rakesh Bodies Not Reportable 11/21/17 06:45 Hem Pathologist Commnt No 11/21/17 06:45 PT 14.9 Sec. (12.2-14.9) 11/18/17 00:24 INR 1.11 (0.87-1.13) 11/18/17 00:24 APTT 38.7 Sec. (24.2-36.6) H 11/18/17 00:24 Sodium 135 mmol/L (137-145) L 11/21/17 06:45 Potassium 3.3 mmol/L (3.6-5.0) L 11/21/17 06:45 Chloride 92.8 mmol/L (98-107) L 11/21/17 06:45 Carbon Dioxide 24 mmol/L (22-30) 11/21/17 06:45 Anion Gap 22 mmol/L 11/21/17 06:45 BUN 9 mg/dL (7-17) 11/21/17 06:45 Creatinine 0.7 mg/dL (0.7-1.2) 11/21/17 06:45 Estimated GFR > 60 ml/min 11/21/17 06:45 BUN/Creatinine Ratio 13 % 11/21/17 06:45 Glucose 70 mg/dL (65-100) 11/21/17 06:45 Calcium 8.9 mg/dL (8.4-10.2) 11/21/17 06:45 Iron 10 ug/dL (37-170) L 11/19/17 13:10 TIBC 379 mcg/dL (250-450) 11/19/17 13:10 % Saturation 2.64 % 11/19/17 13:10 Transferrin 321 mg/dl (192-382) 11/19/17 13:10 Ferritin 39.0 ng/mL (13.0-400.0) 11/19/17 13:10 Total Creatine Kinase 62 units/L (30-135) 11/18/17 12:56 CK-MB (CK-2) < 1.0 ng/mL (0.0-4.0) 11/18/17 12:56 CK-MB (CK-2) Rel Index 1.6 (0-4) 11/18/17 12:56 Troponin T < 0.010 ng/mL (0.00-0.029) 11/18/17 12:56 Vitamin B12 595.1 pg/mL (211-911) 11/19/17 13:10 Folate 10.26 ng/mL (7.3-26.0) 11/19/17 13:10 Urine Color Yellow (Yellow) 11/18/17 01:07 Urine Turbidity Clear (Clear) 11/18/17 01:07 Urine pH 5.0 (5.0-7.0) 11/18/17 01:07 Ur Specific [place] 1.021 (1.003-1.030) 11/18/17 01:07 Urine Protein <15 mg/dl mg/dL (Negative) 11/18/17 01:07 Urine Glucose (UA) Neg mg/dL (Negative) 11/18/17 01:07 Urine Ketones Tr mg/dL (Negative) 11/18/17 01:07 Urine Blood Mod (Negative) 11/18/17 01:07 Urine Nitrite Neg (Negative) 11/18/17 01:07 Urine Bilirubin Neg (Negative) 11/18/17 01:07 Urine Urobilinogen < 2.0 mg/dL (<2.0) 11/18/17 01:07 Ur Leukocyte Esterase Lg (Negative) 11/18/17 01:07 Urine WBC (Auto) 62.0 /HPF (0.0-6.0) H 11/18/17 01:07 Urine RBC (Auto) 123.0 /HPF (0.0-6.0) 11/18/17 01:07 U Epithel Cells (Auto) 1.0 /HPF (0-13.0) 11/18/17 01:07 Urine Mucus Few /HPF 11/18/17 01:07 Urine HCG, Qual Negative (Negative) 11/18/17 01:07 Blood Type B POSITIVE 11/18/17 01:07 Antibody Screen Negative 11/18/17 01:07 Crossmatch See Detail 11/18/17 01:07
[2017-11-21] MEDS: LOVENOX SUB-Q SCH (21:33)
[2017-11-22 09:19] LABS: Mean Corpuscular HGB Conc 28 % (30-34); Red Blood Count 4.57 M/mm3 (3.65-5.03)
[2017-11-22 09:29] LABS: Hematocrit 27.3 % (30.3-42.9); Hemoglobin 7.7 gm/dl (10.1-14.3); Mean Corpuscular Hemoglobin 17 pg (28-32); Mean Corpuscular Volume 60 fl (79-97)
[2017-11-22 09:30] LABS: Red Cell Distribution Width 38.7 % (13.2-15.2)
[2017-11-22 09:34] LABS: Platelet Count 1291 K/mm3 (140-440)
[2017-11-22] MEDS: LOPRESSOR PO SCH ×2 (09:46→21:27)
[2017-11-22] MEDS: NORVASC PO SCH (09:46)
[2017-11-22] MEDS: ASPIRIN PO SCH (09:46)
[2017-11-22] MEDS: FEOSOL PO SCH ×2 (09:46→21:27)
[2017-11-22] MEDS: LEVAQUIN 750MG/150ML 750 MG/150 ML BAG IV SCH (09:47)
[2017-11-22] MEDS: PERCOCET 5/325 PO PRN ×2 (09:55→21:27)
[2017-11-22 11:22] LABS: Band Neutrophils # (Manual) 0.4 K/mm3; Total Cells Counted 100
[2017-11-22 11:23] LABS: Hypochromasia 1+; Tear Drop Cells Few
[2017-11-22 11:24] LABS: Large Platelets Few; Platelet Estimate Appears Increased
--- NOTE | 2017-11-22 14:17 | Progress Note ---
Assessment and Plan Assessment and plan: 42-year-old -Ivorian female with past medical history significant for morbid obesity presented to the emergency department complaining of chest and back pain Cardiac enzymes are negative, stress test was done and no acute ischemia seen. CTA showed left sided pneumonia. - Pain control Sepsis secondary to UTI - evidenced by leukocytosis, fever and tachycardia - Leukocytosis persisted, fever and tachycardia subsided. Left-sided pneumonia - Patient is on IV Levaquin Thrombocytosis - Hematology oncology consulted - On IV iron therapy - will follow CBC Iron deficiency anemia - On IV iron therapy DVT prophylaxis - Lovenox Disposition - Will continue inpatient care - Possible discharge tomorrow after getting the recommendation from hematology oncology about leukocytosis and thrombocytosis. History Interval history: patient was seen and evaluated this morning, patient still complaining chest and back pain. patient is getting better. Hospitalist Physical - Physical exam Narrative exam: Not in cardiopulmonary distress. The patient is morbidly obese. Vital signs as documented. Head exam is unremarkable. No scleral icterus . Neck is without jugular venous distension, thyromegaly, or carotid bruits. Lungs creptations on the left lower lung zone. Cardiac exam reveals regular rate and Rhythm. Abdominal exam reveals normal bowel sounds. Extremities are nonedematous. 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 - Constitutional Vitals: Temp Pulse Resp BP Pulse Ox 97.8 F 64 17 112/67 99 11/22/17 12:00 11/22/17 12:00 11/22/17 12:00 11/22/17 12:00 11/22/17 12:00 Results - Labs CBC & Chem 7: 11/22/17 07:30 11/21/17 06:45 Labs: Laboratory Last Values WBC 18.1 K/mm3 (4.5-11.0) H 11/22/17 07:30 RBC 4.57 M/mm3 (3.65-5.03) 11/22/17 07:30 Hgb 7.7 gm/dl (10.1-14.3) L 11/22/17 07:30 Hct 27.3 % (30.3-42.9) L 11/22/17 07:30 MCV 60 fl (79-97) L 11/22/17 07:30 MCH 17 pg (28-32) L 11/22/17 07:30 MCHC 28 % (30-34) L 11/22/17 07:30 RDW 38.7 % (13.2-15.2) H 11/22/17 07:30 Plt Count 1291 K/mm3 (140-440) H* 11/22/17 07:30 Baso % (Auto) [place] 11/22/17 07:30 Add Manual Diff Complete 11/22/17 07:30 Total Counted 100 11/22/17 07:30 Seg Neuts % (Manual) 76.0 % (40.0-70.0) H 11/22/17 07:30 Band Neutrophils % 2.0 % 11/22/17 07:30 Lymphocytes % (Manual) 7.0 % (13.4-35.0) L 11/22/17 07:30 Reactive Lymphs % (Man) 0 % 11/22/17 07:30 Monocytes % (Manual) 8.0 % (0.0-7.3) H 11/22/17 07:30 Eosinophils % (Manual) 3.0 % (0.0-4.3) 11/22/17 07:30 Basophils % (Manual) 1.0 % (0.0-1.8) 11/22/17 07:30 Metamyelocytes % 3.0 % 11/22/17 07:30 Myelocytes % 0 % 11/22/17 07:30 Promyelocytes % 0 % 11/22/17 07:30 Blast Cells % 0 % 11/22/17 07:30 Nucleated RBC % 1.0 % (0.0-0.9) H 11/22/17 07:30 Seg Neutrophils # Man 13.8 K/mm3 (1.8-7.7) H 11/22/17 07:30 Band Neutrophils # 0.4 K/mm3 11/22/17 07:30 Lymphocytes # (Manual) 1.3 K/mm3 (1.2-5.4) 11/22/17 07:30 Abs React Lymphs (Man) 0.0 K/mm3 11/22/17 07:30 Monocytes # (Manual) 1.4 K/mm3 (0.0-0.8) H 11/22/17 07:30 Eosinophils # (Manual) 0.5 K/mm3 (0.0-0.4) H 11/22/17 07:30 Basophils # (Manual) 0.2 K/mm3 (0.0-0.1) H 11/22/17 07:30 Metamyelocytes # 0.5 K/mm3 11/22/17 07:30 Myelocytes # 0.0 K/mm3 11/22/17 07:30 Promyelocytes # 0.0 K/mm3 11/22/17 07:30 Blast Cells # 0.0 K/mm3 11/22/17 07:30 Pathologist Review 11/17/17 22:49 WBC Morphology Not Reportable 11/22/17 07:30 Hypersegmented Neuts Not Reportable 11/22/17 07:30 Hyposegmented Neuts Not Reportable 11/22/17 07:30 Hypogranular Neuts Not Reportable 11/22/17 07:30 Smudge Cells Not Reportable 11/22/17 07:30 Toxic Granulation Not Reportable 11/22/17 07:30 Toxic Vacuolation Not Reportable 11/22/17 07:30 Dohle Bodies Not Reportable 11/22/17 07:30 Pelger-Huet Anomaly Not Reportable 11/22/17 07:30 Harpal Rods Not Reportable 11/22/17 07:30 Platelet Estimate Appears increased 11/22/17 07:30 Clumped Platelets Not Reportable 11/22/17 07:30 Plt Clumps, EDTA Not Reportable 11/22/17 07:30 Large Platelets Few 11/22/17 07:30 Giant Platelets Not Reportable 11/22/17 07:30 Platelet Satelliting Not Reportable 11/22/17 07:30 Plt Morphology Comment Not Reportable 11/22/17 07:30 RBC Morphology Not Reportable 11/22/17 07:30 Dimorphic RBCs Not Reportable 11/22/17 07:30 Polychromasia 1+ 11/22/17 07:30 Hypochromasia 1+ 11/22/17 07:30 Poikilocytosis Not Reportable 11/22/17 07:30 Anisocytosis Not Reportable 11/22/17 07:30 Microcytosis Not Reportable 11/22/17 07:30 Macrocytosis Not Reportable 11/22/17 07:30 Spherocytes Not Reportable 11/22/17 07:30 Pappenheimer Bodies Not Reportable 11/22/17 07:30 Sickle Cells Not Reportable 11/22/17 07:30 Target Cells Not Reportable 11/22/17 07:30 Tear Drop Cells Few 11/22/17 07:30 Ovalocytes Not Reportable 11/22/17 07:30 Helmet Cells Not Reportable 11/22/17 07:30 Ruby-Norene Bodies Not Reportable 11/22/17 07:30 [place] Rings Not Reportable 11/22/17 07:30 [place] Cells Not Reportable 11/22/17 07:30 Bite Cells Not Reportable 11/22/17 07:30 Crenated Cell Not Reportable 11/22/17 07:30 Elliptocytes 1+ 11/22/17 07:30 Acanthocytes (Spur) Not Reportable 11/22/17 07:30 Rouleaux Not Reportable 11/22/17 07:30 Hemoglobin C Crystals Not Reportable 11/22/17 07:30 Schistocytes Not Reportable 11/22/17 07:30 Malaria parasites Not Reportable 11/22/17 07:30 Percent Retic 2.50 % (0.78-2.58) 11/19/17 13:10 Rakesh Bodies Not Reportable 11/22/17 07:30 Hem Pathologist Commnt No 11/22/17 07:30 PT 14.9 Sec. (12.2-14.9) 11/18/17 00:24 INR 1.11 (0.87-1.13) 11/18/17 00:24 APTT 38.7 Sec. (24.2-36.6) H 11/18/17 00:24 Sodium 135 mmol/L (137-145) L 11/21/17 06:45 Potassium 3.3 mmol/L (3.6-5.0) L 11/21/17 06:45 Chloride 92.8 mmol/L (98-107) L 11/21/17 06:45 Carbon Dioxide 24 mmol/L (22-30) 11/21/17 06:45 Anion Gap 22 mmol/L 11/21/17 06:45 BUN 9 mg/dL (7-17) 11/21/17 06:45 Creatinine 0.7 mg/dL (0.7-1.2) 11/21/17 06:45 Estimated GFR > 60 ml/min 11/21/17 06:45 BUN/Creatinine Ratio 13 % 11/21/17 06:45 Glucose 70 mg/dL (65-100) 11/21/17 06:45 Calcium 8.9 mg/dL (8.4-10.2) 11/21/17 06:45 Iron 10 ug/dL (37-170) L 11/19/17 13:10 TIBC 379 mcg/dL (250-450) 11/19/17 13:10 % Saturation 2.64 % 11/19/17 13:10 Transferrin 321 mg/dl (192-382) 11/19/17 13:10 Ferritin 39.0 ng/mL (13.0-400.0) 11/19/17 13:10 Total Creatine Kinase 62 units/L (30-135) 11/18/17 12:56 CK-MB (CK-2) < 1.0 ng/mL (0.0-4.0) 11/18/17 12:56 CK-MB (CK-2) Rel Index 1.6 (0-4) 11/18/17 12:56 Troponin T < 0.010 ng/mL (0.00-0.029) 11/18/17 12:56 Vitamin B12 595.1 pg/mL (211-911) 11/19/17 13:10 Folate 10.26 ng/mL (7.3-26.0) 11/19/17 13:10 Urine Color Yellow (Yellow) 11/18/17 01:07 Urine Turbidity Clear (Clear) 11/18/17 01:07 Urine pH 5.0 (5.0-7.0) 11/18/17 01:07 Ur Specific [place] 1.021 (1.003-1.030) 11/18/17 01:07 Urine Protein <15 mg/dl mg/dL (Negative) 11/18/17 01:07 Urine Glucose (UA) Neg mg/dL (Negative) 11/18/17 01:07 Urine Ketones Tr mg/dL (Negative) 11/18/17 01:07 Urine Blood Mod (Negative) 11/18/17 01:07 Urine Nitrite Neg (Negative) 11/18/17 01:07 Urine Bilirubin Neg (Negative) 11/18/17 01:07 Urine Urobilinogen < 2.0 mg/dL (<2.0) 11/18/17 01:07 Ur Leukocyte Esterase Lg (Negative) 11/18/17 01:07 Urine WBC (Auto) 62.0 /HPF (0.0-6.0) H 11/18/17 01:07 Urine RBC (Auto) 123.0 /HPF (0.0-6.0) 11/18/17 01:07 U Epithel Cells (Auto) 1.0 /HPF (0-13.0) 11/18/17 01:07 Urine Mucus Few /HPF 11/18/17 01:07 Urine HCG, Qual Negative (Negative) 11/18/17 01:07 Blood Type B POSITIVE 11/18/17 01:07 Antibody Screen Negative 11/18/17 01:07 Crossmatch See Detail 11/18/17 01:07
[2017-11-22] MEDS: LOVENOX SUB-Q SCH (21:28)
[2017-11-23 06:24] LABS: Mean Corpuscular HGB Conc 28 % (30-34); Red Blood Count 4.62 M/mm3 (3.65-5.03)
[2017-11-23 06:26] LABS: Hemoglobin 7.9 gm/dl (10.1-14.3); Mean Corpuscular Hemoglobin 17 pg (28-32); Mean Corpuscular Volume 61 fl (79-97); Red Cell Distribution Width 36.8 % (13.2-15.2)
[2017-11-23 06:28] LABS: Platelet Count 1400 K/mm3 (140-440)
[2017-11-23 08:59] VITALS: BP 128/57
[2017-11-23 09:11] LABS: Band Neutrophils # (Manual) 0.8 K/mm3; Total Cells Counted 100
[2017-11-23 09:12] LABS: Anisocytosis 2+; Hypochromasia 2+; Ovalocytes 2+; Platelet Estimate Consistent w Auto
[2017-11-23] MEDS: LEVAQUIN 750MG/150ML 750 MG/150 ML BAG IV SCH (09:19)
[2017-11-23] MEDS: PERCOCET 5/325 PO PRN (09:20)
[2017-11-23] MEDS: NORVASC PO SCH (09:20)
[2017-11-23] MEDS: LOPRESSOR PO SCH (09:20)
[2017-11-23] MEDS: ASPIRIN PO SCH (09:20)
[2017-11-23] MEDS: FEOSOL PO SCH (09:30)
--- NOTE | 2017-11-23 09:44 | Discharge Summary ---
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 Dense areas of consolidation seen in the left upper lobe and left lower lobe suspicious for pneumonia. Atelectasis could present in this manner. Mild cardiomegaly. Splenomegaly. Hospital course: 42-year-old -Iranian female with past medical history significant for morbid obesity presented to the emergency department complaining of chest and back pain, cough and SOB. Patient said she has heavy menses. On further workup WBC count was 20,000, hemoglobin was 6.2, platelet was 1388k, MCV was low , iron was low, ferritin was low. Patient said she knew that she had elevated platelet count on previous workup. CTA was done and showed left upper and lower lobe infiltrates. Patient has also fever. Blood culture and urine culture was negative Cardiac enzymes are negative, stress test was done and no acute ischemia seen. CTA showed left sided pneumonia. Sepsis secondary to UTI and pneumonia - evidenced by leukocytosis, fever and tachycardia - Leukocytosis persisted, fever and tachycardia subsided. Left-sided pneumonia - Patient is treated with IV Levaquin and to be continued with by mouth Levaquin as an outpatient Thrombocytosis - Hematology oncology consulted and cause could be due to iron deficiency anemia and patient was treated with IV iron and will be continued with by mouth iron therapy. Dr. Martin said she will follow the patient has an outpatient within 1 week Symptomatic deficiency anemia patient was given packed RBC and hemoglobin this morning was 7.8 and stable. We'll continue his iron treatment and advised to keep appointment with hematology oncology. Patient was hemodynamically stable at the time of discharge. Patient's concerns and questions were addressed at the bedside. Appropriate medication scripts were given at the time of discharge. Disposition: TO HOME OR SELFCARE Time spent for discharge: 37 minutes - Discharge Diagnoses (1) Chest pain Status: Acute Qualifiers: Chest pain type: unspecified Qualified Code(s): R07.9 - Chest pain, unspecified (2) Symptomatic anemia Status: Acute (3) Thrombocytosis Status: Chronic (4) Hypertension Status: Chronic Qualifiers: Hypertension type: essential hypertension Qualified Code(s): I10 - Essential (primary) hypertension (5) Sepsis Status: Acute Qualifiers: Sepsis type: sepsis due to unspecified organism Qualified Code(s): A41.9 - Sepsis, unspecified organism (6) Pneumonia Status: Acute Qualifiers: Pneumonia type: due to unspecified organism Laterality: left Lung location: lower lobe of lung Qualified Code(s): J18.1 - Lobar pneumonia, unspecified organism Core Measure Documentation - Palliative Care Palliative Care/ Comfort Measures: Not Applicable - Core Measures Any of the following diagnoses?: none Exam - Physical Exam Narrative exam: Not in cardiopulmonary distress. The patient is morbidly obese. Vital signs as documented. Head exam is unremarkable. No scleral icterus . Neck is without jugular venous distension, thyromegaly, or carotid bruits. Lungs creptations on the left lower lung zone. Cardiac exam reveals regular rate and Rhythm. Abdominal exam reveals normal bowel sounds. Extremities are nonedematous. DIRECTOR STUDENT UNION: Alert and oriented 3. - Constitutional Vitals: Temp Pulse Resp BP Pulse Ox 98.2 F 70 16 128/57 96 11/23/17 08:23 11/23/17 09:20 11/23/17 09:20 11/23/17 09:20 11/23/17 08:23 Plan Activity: no restrictions Weight Bearing Status: Full Weight Bearing Diet: low fat, low cholesterol Additional Instructions: [place] at [facility] in 1-2 weeks Follow up with: SASCHA HORN MD [Primary Care Provider] - 3-5 Days DOMINGO MARTIN MD [Staff Physician] - 7 Days Prescriptions: amLODIPine [Norvasc] 10 mg PO DAILY #30 tablet Ferrous Sulfate [Feosol 325 MG tab] 325 mg PO BID #60 tablet Levofloxacin [Levaquin] 750 mg PO QDAY #7 tablet Metoprolol [Lopressor TAB] 50 mg PO BID #60 tablet oxyCODONE /ACETAMINOPHEN [Percocet 5/325 mg] 2 tab PO Q6H PRN #12 tablet PRN Reason: Pain, Moderate (4-6)
--- NOTE | 2017-11-23 09:49 | Hem/Onc Progress Note ---
Assessment and Plan Patient's platelets are still greater than 1 million. Patient may have underlying myeloproliferative disorder. At this point, I can follow her as outpatient and see her this week for another CBC. If platelets still high then I will start her on hydroxyurea. I have discussed this with Dr. baeza Subjective Date of service: 11/23/17 Interval history: pt feels a little better. Objective - Constitutional Vitals: Last Vital Signs Temp 98.2 F 11/23/17 08:23 Pulse 70 11/23/17 09:20 Resp 16 11/23/17 09:20 BP 128/57 11/23/17 09:20 Pulse Ox 96 11/23/17 08:23 Pain Intensity (0-10): denies any pain General appearance: no acute distress - Neck Neck: supple - Respiratory Respiratory effort: Positive: normal Respiratory: bilateral: diminished - Cardiovascular Rhythm: regular Extremities: No edema - Gastrointestinal General gastrointestinal: Present: soft - Labs Lab Results: Laboratory Results - last 24 hr 11/22/17 11/23/17 07:30 05:53 WBC 18.8 H RBC 4.62 Hgb 7.9 L Hct 28.0 L MCV 61 L MCH 17 L MCHC 28 L RDW 36.8 H Plt Count 1400 H* Add Manual Diff Complete Complete Total Counted 100 100 Seg Neuts % (Manual) 76.0 H 74.0 H Band Neutrophils % 2.0 4.0 Lymphocytes % (Manual) 7.0 L 13.0 L Reactive Lymphs % (Man) 0 0 Monocytes % (Manual) 8.0 H 1.0 Eosinophils % (Manual) 3.0 3.0 Basophils % (Manual) 1.0 3.0 H Metamyelocytes % 3.0 2.0 Myelocytes % 0 0 Promyelocytes % 0 0 Blast Cells % 0 0 Nucleated RBC % 1.0 H Not Reportable Seg Neutrophils # Man 13.8 H 13.9 H Band Neutrophils # 0.4 0.8 Lymphocytes # (Manual) 1.3 2.4 Abs React Lymphs (Man) 0.0 0.0 Monocytes # (Manual) 1.4 H 0.2 Eosinophils # (Manual) 0.5 H 0.6 H Basophils # (Manual) 0.2 H 0.6 H Metamyelocytes # 0.5 0.4 Myelocytes # 0.0 0.0 Promyelocytes # 0.0 0.0 Blast Cells # 0.0 0.0 WBC Morphology Not Reportable Not Reportable Hypersegmented Neuts Not Reportable Not Reportable Hyposegmented Neuts Not Reportable Not Reportable Hypogranular Neuts Not Reportable Not Reportable Smudge Cells Not Reportable Not Reportable Toxic Granulation Not Reportable Not Reportable Toxic Vacuolation Not Reportable Not Reportable Dohle Bodies Not Reportable Not Reportable Pelger-Huet Anomaly Not Reportable Not Reportable Harpal Rods Not Reportable Not Reportable Platelet Estimate Appears increased Consistent w auto Clumped Platelets Not Reportable Not Reportable Plt Clumps, EDTA Not Reportable Not Reportable Large Platelets Few Not Reportable Giant Platelets Not Reportable Not Reportable Platelet Satelliting Not Reportable Not Reportable Plt Morphology Comment Not Reportable Not Reportable RBC Morphology Not Reportable Not Reportable Dimorphic RBCs Not Reportable Not Reportable Polychromasia 1+ 1+ Hypochromasia 1+ 2+ Poikilocytosis Not Reportable Not Reportable Anisocytosis Not Reportable 2+ Microcytosis Not Reportable 2+ Macrocytosis Not Reportable Not Reportable Spherocytes Not Reportable Not Reportable Pappenheimer Bodies Not Reportable Not Reportable Sickle Cells Not Reportable Not Reportable Target Cells Not Reportable Not Reportable Tear Drop Cells Few Not Reportable Ovalocytes Not Reportable 2+ Helmet Cells Not Reportable Not Reportable [place] Bodies Not Reportable Not Reportable [place] Rings Not Reportable Not Reportable Babbitt Cells Not Reportable Not Reportable Bite Cells Not Reportable Not Reportable Crenated Cell Not Reportable Not Reportable Elliptocytes 1+ Not Reportable Acanthocytes (Spur) Not Reportable Not Reportable Rouleaux Not Reportable Not Reportable Hemoglobin C Crystals Not Reportable Not Reportable Schistocytes Not Reportable Not Reportable Malaria parasites Not Reportable Not Reportable Rakesh Bodies Not Reportable Not Reportable Hem Pathologist Commnt No No
--- NOTE | 2017-11-23 14:14 | Cat Scan Report ---
FINAL REPORT PROCEDURE: CT ANGIO CHEST TECHNIQUE: Computerized tomographic angiography of the chest was performed during the IV injection of iodinated nonionic contrast including image processing. The image data was postprocessed using 2-dimensional multiplanar reformatted (MPR) and 3-dimensional (MIP and/or volume rendered) techniques. HISTORY: chest pain radiating to the back COMPARISON: No prior studies are available for comparison. FINDINGS: Pulmonary outflow tract, right and left main pulmonary arteries and their proximal branches: Clear, no filling defects seen to suggest pulmonary embolus. Pericardium: No evidence of pericardial effusion. The heart appears mildly enlarged. Thoracic aorta: No evidence of aneurysmal dilatation or dissection. Coronary arteries: Are unremarkable. Mediastinum and hilar regions: Nonspecific subcentimeter lymph nodes are visualized. No pathologically enlarged lymph nodes or masses are identified. Lung Ha: There is dense consolidation and air bronchograms visualized in portions of the left upper lobe medially posteriorly and also in a large portion of the left lower lobe posterior medially. The appearance suggest pneumonia versus dense atelectasis. No effusions are identified. Upper abdomen: The spleen is diffusely enlarged measuring 18.6 centimeters. No acute abnormalities are seen in the upper abdomen. Other: No acute bony abnormalities are visualized. IMPRESSION: No evidence of pulmonary embolus. Dense areas of consolidation seen in the left upper lobe and left lower lobe suspicious for pneumonia. Atelectasis could present in this manner. Mild cardiomegaly. Splenomegaly.
== END 2017-11-23 12:35 | disposition home or self-care (01) | DRG 871 ==
LOC: ED 22:04 → 4A 11-18 03:44
PROVIDERS: ADMIT Internal Medicine; ATTEND Internal Medicine
PROC: 30233N1 Transfusion of Nonautologous Red Blood Cells into Peripheral Vein, Percutaneous Approach (ICD-10-PCS; principal; 2017-11-18)
DX: A41.9 Sepsis, unspecified organism (principal); J18.1 Lobar pneumonia, unspecified organism; N39.0 Urinary tract infection, site not specified; Z68.41 Body mass index [BMI] 40.0-44.9, adult; D47.3 Essential (hemorrhagic) thrombocythemia; I10 Essential (primary) hypertension; E66.01 Morbid (severe) obesity due to excess calories; D50.9 Iron deficiency anemia, unspecified; R07.89 Other chest pain
CPT/HCPCS: 36415; 71275; 78452; 80048; 81001; 81025; 82550; 82553; 82607; 82728; 82747; 83550; 84484; 85007; 85025; 85045; 85610; 85730; 86850; 86900; 86901; 86920; 87040; 87086; 93005; 93010; 93017; 96374; 99285; A9502; J0360; J0696; J1650; J1956; J2270; J2405; J2785; J2916; J7040; P9016; Q9967

== ENCOUNTER 2017-12-15 07:02 | Day surgery (SDC) | payer BC ==
[2017-12-15 08:13] LABS: Eosinophils # (Auto) 0.4 K/mm3 (0.0-0.4); Eosinophils % (Auto) 3.8 % (0.0-4.3); Hematocrit 33.7 % (30.3-42.9); Hemoglobin 10.4 gm/dl (10.1-14.3); Mean Corpuscular HGB Conc 31 % (30-34); Mean Corpuscular Volume 72 fl (79-97); Monocytes # (Auto) 0.3 K/mm3 (0.0-0.8); Monocytes % (Auto) 2.6 % (0.0-7.3); Platelet Count 829 K/mm3 (140-440); Red Blood Count 4.66 M/mm3 (3.65-5.03)
[2017-12-15 08:14] LABS: Mean Corpuscular Hemoglobin 22 pg (28-32)
[2017-12-15 08:16] LABS: INR 1.05 (0.87-1.13)
[2017-12-15 08:17] LABS: Partial Thromboplastin Time 28.6 Sec. (24.2-36.6)
[2017-12-15] MEDS ORDERED: VERSED IV ONE ×2 (09:25→09:30)
[2017-12-15] MEDS ORDERED: SUBLIMAZE ONE (09:25)
[2017-12-15] MEDS ORDERED: SUBLIMAZE IV ONE (09:30)
[2017-12-15] MEDS ORDERED: BENADRYL IV ONE (09:58)
[2017-12-15] MEDS ORDERED: BENADRYL ONE (10:02)
--- NOTE | 2017-12-15 10:42 | Cat Scan Report ---
CT BIOPSY BONE MARROW: HISTORY: Iron deficiency anemia, essential thrombocythemia. DESCRIPTION OF PROCEDURE: Informed consent was obtained. Sterile technique was utilized. Conscious sedation was accomplished with Versed and fentanyl. The patient was sedated for 15 minutes. Independent cardiorespiratory monitoring by RN. Intra-observer time of [address] guidance, an introducer needle was advanced into the left posterior iliac bone. 4 aspirations and one 11-gauge bone core was obtained. Pathology was present to handle the sample. The patient tolerated the procedure without difficulty. IMPRESSION: Successful CT-guided bone marrow biopsy.
[2017-12-15 11:05] LABS: Band Neutrophils # (Manual) 0.1 K/mm3; Total Cells Counted 100
[2017-12-15 11:06] LABS: Anisocytosis 3+; Ovalocytes 1+; Poikilocytosis 3+; Tear Drop Cells 1+
[2017-12-15 11:07] LABS: Hypochromasia 2+; Large Platelets Few; Platelet Estimate Cons
[2017-12-15 11:08] LABS: Red Cell Distribution Width > 40.0 % (13.2-15.2)
[2017-12-15 12:13] VITALS: BP 164/89
== END 2017-12-15 12:15 | disposition home or self-care (01) ==
LOC: CATHLABREC 07:02 → EDSTATUS 08:30 → CATHLABREC 12:15
PROVIDERS: ATTEND Internal Medicine Hematology & Oncology
DX: D47.3 Essential (hemorrhagic) thrombocythemia (principal); D50.9 Iron deficiency anemia, unspecified
CPT/HCPCS: 36415; 38222; 77012; 85007; 85025; 85097; 85610; 85730; 88161; 88184; 88185; 88230; 88291; 88305; 88311; 88313; J1200; J2250; J3010; 38221

== ENCOUNTER 2018-07-28 20:30 | Observation (INO) | payer BC ==
[2018-07-28] MEDS ORDERED: ASPIRIN PO ONE (20:56)
--- NOTE | 2018-07-28 20:57 | Emergency Department Report ---
Blank Doc - Documentation Documentation: 42 y.o. female presents with right sided chest pain. PMH of anemia. Taking h ydrea for thrombocytosis. cc of right shoulder and right hip pain, rash to hands and feet Labs ordered Fast Track for evaluation
[2018-07-28 21:43] LABS: Basophils % (Auto) 1.1 % (0.0-1.8); Eosinophils # (Auto) 0.1 K/mm3 (0.0-0.4); Eosinophils % (Auto) 1.3 % (0.0-4.3); Hematocrit 30.9 % (30.3-42.9); Hemoglobin 9.7 gm/dl (10.1-14.3); Lymphocytes # (Auto) 0.5 K/mm3 (1.2-5.4); Lymphocytes % (Auto) 12.8 % (13.4-35.0); Mean Corpuscular HGB Conc 32 % (30-34); Mean Corpuscular Volume 77 fl (79-97); Monocytes # (Auto) 0.2 K/mm3 (0.0-0.8); Monocytes % (Auto) 3.8 % (0.0-7.3); Platelet Count 385 K/mm3 (140-440); Red Blood Count 4.03 M/mm3 (3.65-5.03)
[2018-07-28 21:44] LABS: Red Cell Distribution Width 23.5 % (13.2-15.2)
[2018-07-28 22:11] LABS: BUN/Creatinine Ratio 14; Blood Urea Nitrogen 10 mg/dL (7-17); Hemolysis Index 4
[2018-07-29] MEDS ORDERED: DILAUDID IV ONE (01:58)
[2018-07-29] MEDS ORDERED: TORADOL IV ONE (01:58)
[2018-07-29] MEDS ORDERED: NACL 0.9% 1000 ML 1,000 ML IV ONE (01:59)
[2018-07-29] MEDS ORDERED: ASPIRIN ONE (02:02)
--- NOTE | 2018-07-29 02:22 | Emergency Department Report ---
ED General Adult HPI - General Chief complaint: Chest Pain Stated complaint: CHEST PAIN Time Seen by Provider: 07/28/18 20:52 Source: patient, RN notes reviewed, old records reviewed Mode of arrival: Ambulatory Limitations: No Limitations - History of Present Illness Initial comments: This is a 42-year-old female. The patient is not known to this provider previously. Her past medical history includes morbid obesity, anemia, thrombocytosis, and presumed myeloproliferative disorder. Patient is currently maintained on chronic hydroxyurea. Her private sales appointment coordinator is Dr. Sharp The patient presents to the emergency room today with a complaint of central chest pain, back pain, pleuritic, increases with palpation, increases with inspiration. Patient admitted to this hospital a few months ago for similar symptoms, had a CT scan of the chest which showed pneumonia, and no pulmonary embolus. She also had a stress test, his temperature did no evidence of myocardial ischemia. Her chest pain has been intermittent for the past half a day, and increases with palpation and the aforementioned characteristics. Her next complaint is nontraumatic right-sided hip pain. This is present for the past few days. The pain is sharp, burning, aching, increases with palpation and decreases with rest. It does not radiate anywhere. The patient endorses a third complaint of rash. The rashes on her palms, soles, upper extremities, and has spread to her back. She saw her sales appointment coordinator about this, and was offered the opinion that the rash may be related to escalating hydroxyurea. She was referred to an outpatient customs and border protection inspector. This rash is basically painless, and is not associated with fevers or chills. Patient reports having an elective hysterectomy May 2018, and reports negative HIV testing and STD testing. Furthermore, she denies fever, denies IV drug use, and reports only one sexual partner. -: Gradual Location: chest, right, lower extremity Radiation: other Severity scale (0 -10): 8 Quality: other Consistency: other Improves with: other Associated Symptoms: chest pain, cough, loss of appetite, malaise, rash, shortness of breath, weakness. denies: confusion, diaphoresis, fever/chills, headaches, nausea/vomiting, seizure, syncope - Related Data Home Medications Medication Instructions Recorded Confirmed Last Taken Hydroxyurea [Hydrea] 1,000 mg PO BID 12/15/17 12/15/17 12/14/17 traMADol [Ultram] 50 mg PO Q6HR PRN 12/15/17 12/15/17 12/14/17 Previous Rx's Medication Instructions Recorded Last Taken Type Ferrous Sulfate [Feosol 325 MG tab] 325 mg PO BID #60 tablet 11/23/17 12/14/17 Rx Metoprolol [Lopressor TAB] 50 mg PO BID #60 tablet 11/23/17 12/14/17 Rx amLODIPine [Norvasc] 10 mg PO DAILY #30 tablet 11/23/17 12/14/17 Rx Ibuprofen [Motrin 800 MG tab] 800 mg PO Q8HR PRN #12 tablet 04/06/18 Unknown Rx medroxyPROGESTERone ACETATE 10 mg PO DAILY #10 tablet 04/06/18 Unknown Rx [Medroxyprogesterone Acetate] Allergies Allergy/AdvReac Type Severity Reaction Status Date / Time No Known Allergies Allergy Verified 11/17/17 22:14 ED Review of Systems ROS: Stated complaint: CHEST PAIN Other details as noted in HPI Constitutional: malaise. denies: fever Eyes: denies: vision change Respiratory: cough Cardiovascular: chest pain Gastrointestinal: denies: abdominal pain Genitourinary: denies: dysuria Musculoskeletal: arthralgia, myalgia Skin: rash, lesions Neurological: denies: weakness Psychiatric: anxiety ED Past Medical Hx - Past Medical History Hx Hypertension: Yes Additional medical history: anemia-transfusion, elevated Platlets - Surgical History Additional Surgical History: x 2, elbow surgery,hysterectomy - Social History Smoking Status: Never Smoker Substance Use Type: None - Medications Home Medications: Home Medications Medication Instructions Recorded Confirmed Last Taken Type Ferrous Sulfate [Feosol 325 MG tab] 325 mg PO BID #60 tablet 11/23/17 12/15/17 12/14/17 Rx Metoprolol [Lopressor TAB] 50 mg PO BID #60 tablet 11/23/17 12/15/17 12/14/17 Rx amLODIPine [Norvasc] 10 mg PO DAILY #30 tablet 11/23/17 12/15/17 12/14/17 Rx Hydroxyurea [Hydrea] 1,000 mg PO BID 12/15/17 12/15/17 12/14/17 History traMADol [Ultram] 50 mg PO Q6HR PRN 12/15/17 12/15/17 12/14/17 History Ibuprofen [Motrin 800 MG tab] 800 mg PO Q8HR PRN #12 tablet 04/06/18 Unknown Rx medroxyPROGESTERone ACETATE 10 mg PO DAILY #10 tablet 04/06/18 Unknown Rx [Medroxyprogesterone Acetate] ED Physical Exam - General Limitations: No Limitations General appearance: alert, obese - Head Head exam: Present: atraumatic, normocephalic - Eye Eye exam: Present: normal appearance, EOMI. Absent: nystagmus - ENT ENT exam: Present: normal exam, normal orophraynx, mucous membranes moist, normal external ear exam - Neck Neck exam: Present: normal inspection, full ROM. Absent: tenderness, meni ngismus - Respiratory Respiratory exam: Present: normal lung sounds bilaterally, other (there is no breast tenderness. Chaperoned by nurse Serene Parrish). Absent: respiratory distress, wheezes, rales, rhonchi, stridor, chest wall tenderness - Cardiovascular Cardiovascular Exam: Present: regular rate, normal rhythm, normal heart sounds. Absent: bradycardia, tachycardia, irregular rhythm, systolic murmur, diastolic murmur, rubs, gallop - GI/Abdominal GI/Abdominal exam: Present: soft. Absent: distended, tenderness, guarding, rebound, rigid, pulsatile mass - Extremities Exam Extremities exam: Present: full ROM, tenderness (there is right lateral hip tenderness. There is no redness, pus or streaking. During his examination, chaperoned by nurse Cast. There is painful passive and active range of motion of the right hip, but range of motion appears to be intact.), other (2+ pulses noted in the bilateral upper, lower extremities. Compartments soft. No long bony tenderness. The pelvis is stable.). Absent: pedal edema, joint swelling, calf tenderness - Back Exam Back exam: Present: normal inspection, full ROM. Absent: tenderness, CVA tenderness (R), paraspinal tenderness, vertebral tenderness - Neurological Exam Neurological exam: Present: alert, oriented X3, CN II-XII intact, other (Extraocular movements intact. Tongue midline. No facial droop. Facial sensation intact to light touch in the V1, V2, V3 distribution bilaterally. 5 and 5 strength in 4 extremities.. Sensation is intact to light touch in 4 extremities.). Absent: motor sensory deficit - Psychiatric Psychiatric exam: Present: anxious - Skin Skin exam: Present: warm, rash, other (patient has nontender, nonblanching macules on the palms and soles, appear to be petechial in nature, less prominent on the upper, lower extremities, even less prominent on the central trunk.) ED Course Vital Signs 07/28/18 07/28/18 07/29/18 20:37 23:48 00:00 Temperature 98.1 F Pulse Rate 94 H 97 H 92 H Respiratory 18 26 H 19 Rate Blood Pressure 159/79 177/90 O2 Sat by Pulse 99 98 Oximetry 07/29/18 07/29/18 07/29/18 00:15 00:30 00:40 Temperature Pulse Rate 88 88 Respiratory 26 H 24 20 Rate Blood Pressure 175/88 O2 Sat by Pulse 99 100 100 Oximetry 07/29/18 07/29/18 07/29/18 00:45 01:00 01:15 Temperature Pulse Rate 88 92 H 89 Respiratory 23 21 24 Rate Blood Pressure 175/88 190/91 190/91 O2 Sat by Pulse 99 100 100 Oximetry 07/29/18 07/29/18 07/29/18 01:30 01:45 02:01 Temperature Pulse Rate 90 94 H 97 H Respiratory 22 21 19 Rate Blood Pressure 186/95 186/95 192/98 O2 Sat by Pulse 100 100 100 Oximetry 07/29/18 07/29/18 07/29/18 02:15 02:41 02:45 Temperature Pulse Rate 101 H Respiratory 15 Rate Blood Pressure 192/98 192/98 192/98 O2 Sat by Pulse 99 99 99 Oximetry 07/29/18 07/29/18 07/29/18 03:01 03:15 03:31 Temperature Pulse Rate 98 H 103 H 96 H Respiratory 17 21 13 Rate Blood Pressure 192/98 192/98 206/92 O2 Sat by Pulse 99 100 97 Oximetry 07/29/18 07/29/18 07/29/18 03:45 04:01 04:15 Temperature Pulse Rate 93 H 92 H 91 H Respiratory 22 24 16 Rate Blood Pressure 206/92 211/94 211/94 O2 Sat by Pulse 99 96 100 Oximetry 07/29/18 07/29/18 05:01 05:05 Temperature Pulse Rate 91 H 90 Respiratory 19 Rate Blood Pressure 157/69 O2 Sat by Pulse 100 Oximetry - Reevaluation(s) Reevaluation #1: 07/29/18 03:56 Differential diagnosis, including not limited to: Acute coronary syndrome, myocarditis, pericarditis, pulmonary embolus, pneumonia, hip arthritis, drug reaction, syphilis, HIV, vasculitis Assessment and plan: 42-year-old female with multiple complaints. Complaints #1: Chest pain pleuritic, EKG unchanged from prior, troponin negative, recent negative nuclear stress test, low risk by well's criteria, d- dimer elevated, therefore CT scan of the chest is pending. We will provide pain medication. We will admit the patient to the medical service for cardiac mon itoring, consideration for repeat cardiac risk stratification if chest CT is negative. Complaint #2: Right-sided hip pain: X-ray of the hip is negative for acute disease. Has intact passive, active range of motion of the right hip. There is no redness, pus or streaking. We will provide pain control. Clinically doubt septic joint at this time. Complaint #3: Petechial rash on the palms and soles, started peripherally, then extending centrally, with no fever, afebrile, with reassuring vital signs, with no clinical evidence of mucosal involvement. Patient has given informed consent for STD testing, including hepatitis, syphilis, HIV. Sedimentation rate, CRP sent. Discussed with covering sales appointment coordinator, , who indicates she will contact the patient's primary sales appointment coordinator, and have her consult on the patient. We will admit the patient to the medical service for her multiple issues. The Hospital physician, Dr. Rangel, has accepted the patient to the medical service. Inpatient team may decide to call infectious disease for consultation, but given duration of symptoms, stable vital signs, nontoxic appearance, it is my pain that the patient does not require an emergent overnight consult from infectious disease at this point in time. Reevaluation #2: 07/29/18 05:23 CT scan of the chest is negative for acute disease. ED Medical Decision Making - Lab Data Result diagrams: 07/28/18 21:23 07/28/18 21:23 Vital Signs 07/28/18 07/28/18 07/29/18 20:37 23:48 00:00 Temperature 98.1 F Pulse Rate 94 H 97 H 92 H Respiratory 18 26 H 19 Rate Blood Pressure 159/79 177/90 O2 Sat by Pulse 99 98 Oximetry 07/29/18 07/29/18 07/29/18 00:15 00:30 00:40 Temperature Pulse Rate 88 88 Respiratory 26 H 24 20 Rate Blood Pressure 175/88 O2 Sat by Pulse 99 100 100 Oximetry 07/29/18 07/29/18 07/29/18 00:45 01:00 01:15 Temperature Pulse Rate 88 92 H 89 Respiratory 23 21 24 Rate Blood Pressure 175/88 190/91 190/91 O2 Sat by Pulse 99 100 100 Oximetry 07/29/18 07/29/18 07/29/18 01:30 01:45 02:01 Temperature Pulse Rate 90 94 H 97 H Respiratory 22 21 19 Rate Blood Pressure 186/95 186/95 192/98 O2 Sat by Pulse 100 100 100 Oximetry 07/29/18 07/29/18 07/29/18 02:15 02:41 02:45 Temperature Pulse Rate 101 H Respiratory 15 Rate Blood Pressure 192/98 192/98 192/98 O2 Sat by Pulse 99 99 99 Oximetry 07/29/18 07/29/18 07/29/18 03:01 03:15 03:31 Temperature Pulse Rate 98 H 103 H 96 H Respiratory 17 21 13 Rate Blood Pressure 192/98 192/98 206/92 O2 Sat by Pulse 99 100 97 Oximetry 07/29/18 03:45 Temperature Pulse Rate 93 H Respiratory 22 Rate Blood Pressure 206/92 O2 Sat by Pulse 99 Oximetry Lab Results 07/28/18 07/28/18 07/28/18 Range/Units 21:23 21:23 22:52 WBC 4.0 L (4.5-11.0) K/mm3 RBC 4.03 (3.65-5.03) M/mm3 Hgb 9.7 L (10.1-14.3) gm/dl Hct 30.9 (30.3-42.9) % MCV 77 L (79-97) fl MCH 24 L (28-32) pg MCHC 32 (30-34) % RDW 23.5 H (13.2-15.2) % Plt Count 385 (140-440) K/mm3 Lymph % (Auto) 12.8 L (13.4-35.0) % [place] % (Auto) 3.8 (0.0-7.3) % Eos % (Auto) 1.3 (0.0-4.3) % Baso % (Auto) 1.1 (0.0-1.8) % Lymph # 0.5 L (1.2-5.4) K/mm3 [place] # 0.2 (0.0-0.8) K/mm3 Eos # 0.1 (0.0-0.4) K/mm3 Baso # 0.0 (0.0-0.1) K/mm3 Seg Neutrophils % 81.0 H (40.0-70.0) % Seg Neutrophils # 3.3 (1.8-7.7) K/mm3 ESR (0-20) mm/Hr PT (12.2-14.9) Sec. INR (0.87-1.13) APTT (24.2-36.6) Sec. D-Dimer (0-234) ng/mlDDU Sodium 137 (137-145) mmol/L Potassium 3.7 (3.6-5.0) mmol/L Chloride 102.3 (98-107) mmol/L Carbon Dioxide 24 (22-30) mmol/L Anion Gap 14 mmol/L BUN 10 (7-17) mg/dL Creatinine 0.7 (0.7-1.2) mg/dL Estimated GFR > 60 ml/min BUN/Creatinine Ratio 14 % Glucose 92 (65-100) mg/dL Calcium 9.0 (8.4-10.2) mg/dL Troponin T < 0.010 < 0.010 (0.00-0.029) ng/mL 07/29/18 07/29/18 Range/Units 03:09 03:09 WBC (4.5-11.0) K/mm3 RBC (3.65-5.03) M/mm3 Hgb (10.1-14.3) gm/dl Hct (30.3-42.9) % MCV (79-97) fl MCH (28-32) pg MCHC (30-34) % RDW (13.2-15.2) % Plt Count (140-440) K/mm3 Lymph % (Auto) (13.4-35.0) % [place] % (Auto) (0.0-7.3) % Eos % (Auto) (0.0-4.3) % Baso % (Auto) (0.0-1.8) % Lymph # (1.2-5.4) K/mm3 [place] # (0.0-0.8) K/mm3 Eos # (0.0-0.4) K/mm3 Baso # (0.0-0.1) K/mm3 Seg Neutrophils % (40.0-70.0) % Seg Neutrophils # (1.8-7.7) K/mm3 ESR 82 (0-20) mm/Hr PT 14.2 (12.2-14.9) Sec. INR 1.06 (0.87-1.13) APTT 27.7 (24.2-36.6) Sec. D-Dimer 309.92 H (0-234) ng/mlDDU Sodium (137-145) mmol/L Potassium (3.6-5.0) mmol/L Chloride (98-107) mmol/L Carbon Dioxide (22-30) mmol/L Anion Gap mmol/L BUN (7-17) mg/dL Creatinine (0.7-1.2) mg/dL Estimated GFR ml/min BUN/Creatinine Ratio % Glucose (65-100) mg/dL Calcium (8.4-10.2) mg/dL Troponin T (0.00-0.029) ng/mL - EKG Data -: EKG Interpreted by Ri EKG shows normal: sinus rhythm - EKG Data 07/29/18 04:00 Sinus, 90 beats minute, normal axis, QTC prolonged, high left ventricular voltage, atrial enlargement, incomplete right bundle branch block, not consistent with ST elevation myocardial infarction, appears grossly unchanged from prior EKG from October 2017. - Radiology Data Radiology results: pending, report reviewed, image reviewed X-ray of the hip is negative for acute disease. X-ray of the chest is negative for acute disease. Critical care attestation.: If time is entered above; I have spent that time in minutes in the direct care of this critically ill patient, excluding procedure time. ED Disposition Clinical Impression: Chest pain, Hypertension, Rash and nonspecific skin eruption Disposition: OP ADMIT IP TO THIS HOSP Is pt being admited?: Yes Does the pt Need Aspirin: Yes Condition: Good
--- NOTE | 2018-07-29 03:16 | XRay Report ---
FINAL REPORT PROCEDURE: XR CHEST ROUTINE 2V TECHNIQUE: PA and lateral chest radiographs were obtained. CPT 63683 HISTORY: cp COMPARISON: No prior studies are available for comparison. FINDINGS: Heart: Normal. Mediastinum/Vessels: Normal. Lungs/Pleural space: Normal. Bony thorax: No acute osseous abnormality. Other: IMPRESSION: Normal examination.
--- NOTE | 2018-07-29 03:17 | XRay Report ---
FINAL REPORT PROCEDURE: XR HIP 2-3V RT TECHNIQUE: RIGHT hip radiographs, AP and lateral views. HISTORY: right hip pain COMPARISON: No prior studies are available for comparison. FINDINGS: Fracture (s) and/or Dislocation(s): None . Joint space(s): Normal . Soft tissues: Normal . Bone mineralization: Normal . Foreign bodies: None . IMPRESSION: Normal Examination.
[2018-07-29 03:26] LABS: INR 1.06 (0.87-1.13)
[2018-07-29 03:27] LABS: Partial Thromboplastin Time 27.7 Sec. (24.2-36.6)
[2018-07-29] MEDS ORDERED: APRESOLINE IV ONE (04:00)
[2018-07-29] MEDS ORDERED: BABY ASPIRIN PO ONE (04:01)
[2018-07-29 04:24] LABS: Alanine Aminotransferase 44 units/L (7-56); Albumin 3.8 g/dL (3.9-5)
[2018-07-29 04:30] LABS: Bilirubin,Direct < 0.2 mg/dL (0-0.2)
[2018-07-29] MEDS ORDERED: MORPHINE IV PRN (04:37)
[2018-07-29] MEDS ORDERED: NITROSTAT SL PRN (04:37)
[2018-07-29] MEDS ORDERED: ZOFRAN IV PRN (04:38)
[2018-07-29] MEDS ORDERED: BENADRYL IV PRN (04:40)
[2018-07-29] MEDS ORDERED: TYLENOL PO PRN (04:58)
[2018-07-29 05:01] LABS: Hepatitis B Surface Antigen Non-Reactive (Negative); Hepatitis C Virus Antibody Non-Reactive (NonReactive)
[2018-07-29] MEDS: NITRO-BID 2% TP SCH ×3 (05:03→14:56)
--- NOTE | 2018-07-29 05:06 | Cat Scan Report ---
FINAL REPORT PROCEDURE: CT ANGIO CHEST TECHNIQUE: Computerized tomographic angiography of the chest was performed after the IV injection of iodinated nonionic contrast including image processing. The image data was postprocessed using 2-dim ensional multiplanar reformatted (MPR) and 3-dimensional (MIP and/or volume rendered) techniques. HISTORY: pleuritic chest pain COMPARISON: No prior studies are available for comparison. FINDINGS: Heart and pericardium: Normal. Thoracic aorta: There is no thoracic aortic aneurysm or dissection.. Pulmonary vasculature: There is no pulmonary embolism.. Lymph nodes: No enlarged thoracic lymph nodes. Lungs: Lungs are expanded. There are no infiltrates. There are fibrotic changes at the lung bases. Th ere is a 2 centimeter thin-walled cyst at the left lung base.. Pleural space: There is no pleural effusion or pneumothorax.. Musculoskeletal structures: No significant abnormality. Upper abdominal structures: The liver and spleen are enlarged.. IMPRESSION: The heart size is normal. There is no thoracic aortic aneurysm or dissection.. There is no pulmonary embolism.. Lungs are expanded. There are no infiltrates. There are fibrotic changes at the lung bases. There is a 2 centimeter thin-walled cyst at the left lung base.. There is no pleural effusion or pneumothorax.. The liver and spleen are enlarged..
--- NOTE | 2018-07-29 06:39 | History and Physical Report ---
CHIEF COMPLAINT: Chest pain. HISTORY OF PRESENT ILLNESS: The patient is a 42-year-old female who is having retrosternal and precordial chest pain. The patient said the pain is pleuritic in nature and radiates to the back. The patient was admitted to this hospital a few months ago for similar symptoms during which CT of the chest showed pneumonia. She also had stress test without evidence of myocardial ischemia. The patient described pain as intermittent, which increases with respiration and palpation. There is no associated nausea or vomiting. The patient also complained about rashes in the palms and the sole of the feet with itching and the patient feels that these symptoms are related to the increased dose of hydroxyurea that she is receiving. There is no history of diaphoresis. PAST MEDICAL HISTORY: Pertinent for hypertension, anemia with elevated platelets level. PAST SURGICAL HISTORY: Pertinent for , elbow surgery, hysterectomy. FAMILY HISTORY: Family history is noncontributory. SOCIAL HISTORY: The patient does not smoke, does not drink alcohol, does not use illicit drug. MEDICATIONS: The patient is on ferrous sulfate 325 mg by mouth twice daily, Lopressor 50 mg by mouth twice daily, amlodipine 10 mg by mouth daily, hydroxyurea 1000 mg by mouth twice daily, tramadol 50 mg by mouth every 6 hours as needed for pain, ibuprofen 800 mg by mouth every 8 hours as needed, medroxyprogesterone 10 mg by mouth daily. ALLERGIES: There are no known drug allergies. REVIEW OF SYSTEMS: CONSTITUTIONAL: There is no fever, no chills, no diaphoresis. HEENT: There is no headache or sore throat. CARDIOVASCULAR SYSTEM: Chest pain is present. No orthopnea. RESPIRATORY SYSTEM: Shortness of breath noted. No cough. GASTROINTESTINAL SYSTEM: There is no nausea, no vomiting. No abdominal pain, diarrhea, or constipation. NEUROLOGICAL SYSTEM: There is no numbness, no dizziness, no altered mental status. MUSCULOSKELETAL SYSTEM: There is no joint pain or swelling. DERMATOLOGICAL SYSTEM: Rashes in the upper and lower extremities noted with itching. GENITOURINARY SYSTEM: There is no dysuria, hematuria, or flank pain. Rest of system review is normal. PHYSICAL EXAMINATION: GENERAL: At the time of exam, the patient was found to be alert, oriented x 3 and not in acute distress. VITAL SIGNS: At the initial time of presentation showed temperature of 98.1, pulse of 94, respirations 18, blood pressure 159/79, O2 sat of 99% on room air. HEENT: Showed pupils to be equal, round, reactive to light and accommodating. Extraocular muscles are intact. NECK: Neck is supple with no JVD or carotid bruit. CARDIOVASCULAR SYSTEM: Showed normal first and second heart sounds with no gallops or murmur. RESPIRATORY SYSTEM: Shows good air entry on both sides of the lung with no abnormal breath sounds. GASTROINTESTINAL SYSTEM: Shows abdomen to be full, soft, nontender with no organomegaly or rigidity. NEUROLOGIC: Neuro exam shows no focal deficit. MUSCULOSKELETAL SYSTEM: Shows no joint swelling or tenderness. DERMATOLOGICAL SYSTEM: Shows macular rashes in both the palms and sole of the feet, extending to both forearms. GENITOURINARY SYSTEM: Genitourinary system showing of costovertebral angle tenderness. PERTINENT LABORATORY AND IMAGING STUDIES: The patient had chest x-ray done and chest x-ray shows no acute cardiopulmonary lesion. Lab results, the patient had CBC done with low WBC of 4.0, low hemoglobin of 9.7, low hematocrit of 30.9 with low MCV of 77. CBC differential showing elevated segmented neutrophil of 81.0 and coagulation studies show elevated D-dimer of 309.9. The patient's chemistry was unremarkable except for elevated alkaline phosphatase level of 243 and low albumin level of 3.8. The patient's troponin level was unremarkable and the patient's CT angiogram is still pending. DIAGNOSES: 1. Chest pain. 2. Rashes in the upper and lower limbs. PLAN OF CARE: 1. The patient will be admitted to telemetry. 2. The patient will have cardiac enzymes involving troponin, total CK, and CK-MB checked every 6 hours x 2 level. 3. The patient will be on aspirin 325 mg by mouth daily and will be on nitro paste half-inch to anterior chest wall q.6 hours. 4. The patient will be on sublingual nitroglycerin 0.4 mg every 5 minutes as needed for chest pain and will be heparin 5000 units subcutaneous q.12 hours. 5. The patient will be on Tylenol 650 mg by mouth every 4 hours for fever and headache and will be on IV morphine 2 mg every 3 hours as needed for pain and also IV Zofran 4 mg every 8 hours as needed for nausea and vomiting. 6. The patient will be n.p.o. for Lexiscan stress test this morning. 7. The patient will continue oncology consult with Dr. Sharp as requested by the Emergency Room physician. JOB# [id number] OCN/NTS
[2018-07-29 07:08] LABS: Creatine Kinase MB < 1.0 ng/mL (0.0-4.0)
--- NOTE | 2018-07-29 08:51 | Discharge Summary ---
Providers - Providers Date of Admission: 07/29/18 04:01 Date of discharge: 07/29/18 Attending physician: DUSTY EASON 07/29/18 01:57 Consult to Physician [CONS] Urgent Comment: Dr. Martínez spoke with Dr. Major @ [phone] Consulting Provider: DOMINGO MARTIN Physician Instructions: Reason For Exam: ? drug induced rash, known to you Primary care physician: SHUBHAM MCDONALD Hospitalization Reason for admission: cp Condition: Good Hospital course: This is a 42-year-old female with past medical history of morbid obesity, anemia, thrombocytosis, and presumed myeloproliferative disorder. Patient is currently maintained on chronic hydroxyurea. Her private floor inspector is Dr. Martin. The patient presents to the emergency room with a complaint of central chest pain, back pain, pleuritic, increases with palpation, increases with inspiration. Pt also had additional c/o nontraumatic right-sided hip pain for the past few days. The patient had hip x-rays that were completed in the emergency room that were found to be within normal limits. The patient endorsed a third complaint of rash. The rashes on her palms, soles, upper extremities, and has spread to her back. She saw her floor inspector about this, and was referred to an outpatient vending route driver. This rash is basically painless, and i s not associated with fevers or chills. Patient reports having an elective hysterectomy May 2018, and reports negative HIV testing and STD testing. The patient had slightly elevated d-dimer and underwent CT of the chest that showed no evidence of pulmonary embolus or any other lung disease. Patient is to undergo stress test evaluation today. If stress test is negative, patient will be discharged home with follow-up as an outpatient. Dedicated discharge time 32 minutes. Disposition: DC-01 TO HOME OR SELFCARE Time spent for discharge: 32 - Discharge Diagnoses (1) Chest pain Status: Acute (2) Rash and nonspecific skin eruption Status: Acute (3) Hypertension Status: Chronic Qualifiers: Core Measure Documentation - Palliative Care Palliative Care/ Comfort Measures: Not Applicable - Core Measures Any of the following diagnoses?: none Exam - Constitutional Vitals: Temp Pulse Resp BP Pulse Ox 98.5 F 91 H 18 151/82 100 07/29/18 08:10 07/29/18 08:09 07/29/18 08:09 07/29/18 08:09 07/29/18 08:09 General appearance: Present: no acute distress, well-nourished - EENT Eyes: Present: PERRL ENT: hearing intact, clear oral mucosa - Neck Neck: Present: supple, normal ROM - Respiratory Respiratory effort: normal Respiratory: bilateral: CTA - Cardiovascular Heart Sounds: Present: S1 & S2. Absent: rub, click - Extremities Extremities: pulses symmetrical, No edema Peripheral Pulses: within normal limits - Abdominal General gastrointestinal: Present: soft, non-tender, non-distended, normal bowel sounds Female genitourinary: Present: normal - Integumentary Integumentary: Present: clear, warm, dry - Musculoskeletal Musculoskeletal: gait normal, strength equal bilaterally - Psychiatric Psychiatric: appropriate mood/affect, intact judgment & insight - Neurologic Neurologic: CNII-XII intact, moves all extremities Plan Activity: no restrictions Weight Bearing Status: Full Weight Bearing Diet: regular Follow up with: SHUBHAM MCDONALD MD [Primary Care Provider] - 3-5 Days Prescriptions: amLODIPine [Norvasc] 10 mg PO DAILY #30 tablet Ferrous Sulfate [Feosol 325 MG tab] 325 mg PO BID #60 tablet Hydroxyurea [Hydrea] 1,000 mg PO BID #60 capsule Metoprolol [Lopressor TAB] 50 mg PO BID #60 tablet Pantoprazole [Protonix] 40 mg PO QDAY #30 tablet
[2018-07-29] MEDS ORDERED: HYDREA PO SCH (10:00)
[2018-07-29] MEDS ORDERED: HEPARIN SUB-Q SCH (10:00)
[2018-07-29] MEDS ORDERED: ASPIRIN PO SCH (10:00)
[2018-07-29 10:56] LABS: Hematocrit 28.5 % (30.3-42.9); Hemoglobin 9.1 gm/dl (10.1-14.3); Mean Corpuscular HGB Conc 32 % (30-34); Mean Corpuscular Volume 76 fl (79-97); Platelet Count 302 K/mm3 (140-440); Red Blood Count 3.77 M/mm3 (3.65-5.03)
[2018-07-29] MEDS ORDERED: LEXISCAN IV ONE ×2 (11:58→12:57)
[2018-07-29 16:42] VITALS: BP 181/89
[2018-07-29 16:47] LABS: Creatine Kinase MB < 1.0 ng/mL (0.0-4.0)
[2018-07-29] MEDS ORDERED: BICILLIN L-A IM ONE (18:00)
--- NOTE | 2018-07-29 22:40 | Treadmill Report ---
SINGLE ISOTOPE DUAL STUDY MYOCARDIAL PERFUSION SCAN REPORT REFERRING PHYSICIAN: Jonathon Coronado MD, hospitalist Seen and dictated by Danielle Hernandes MD DESCRIPTION OF PROCEDURE: The patient received 10 mCi of technetium 99m Myoview intravenously under resting conditions. Resting myocardial perfusion scan was done. Subsequently, the patient underwent a Lexiscan stress test as per the protocol. During Lexiscan stress, the patient received 28 mCi of technetium 99m Myoview intravenously. FINDINGS: After 30-60 minutes, post-stress images were done. Computerized reconstruction images were performed for analysis. The post-stress images revealed mild transient ischemic dilatation of the left ventricle with TID ratio of 1.2; however, it did not reveal any perfusion abnormality. Gated study did not reveal any wall motion abnormality. The left ventricular ejection fraction was normal and was calculated to be 65%. The resting images were normal. CONCLUSION: 1. Mild transient ischemic dilatation of the left ventricle on the stress images (TID ratio of 1.2).This is of uncertain significance, particularly with the absence of perfusion defects. 2. Normal resting and stress myocardial perfusion scan images after the patient underwent Lexiscan stress test. 3. No wall motion abnormality. 4. Normal left ventricular ejection fraction of 65%. [facility]# [id number] [facility]
[2018-07-31 22:14] LABS: HIV-1 RNA QN PCR <1.30 Log cps/mL; HIV-1 RNA QN PCR <20 Copies/mL
== END 2018-07-29 18:48 | disposition home or self-care (01) ==
LOC: ED 20:30 → 4A 07-29 04:01
PROVIDERS: ADMIT Internal Medicine; ATTEND Hospitalist
DX: R07.2 Precordial pain (principal); I10 Essential (primary) hypertension; R21 Rash and other nonspecific skin eruption; D64.9 Anemia, unspecified
CPT/HCPCS: 36415; 71046; 71275; 73502; 78452; 80048; 80074; 80076; 82550; 82553; 84484; 85025; 85027; 85379; 85610; 85652; 85730; 86140; 86592; 86593; 86780; 87040; 87536; 90471; 93005; 93010; 93017; 96372; 96374; 96375; 99284; A9502; G0378; J0360; J0561; J1170; J1200; J1644; J1885; J2270; J2405; J2785; J7030; Q9967

== ENCOUNTER 2018-12-01 15:05 | Emergency (ER) | payer BC ==
--- NOTE | 2018-12-01 16:04 | Emergency Department Report ---
Blank Doc - Documentation Documentation: This is a 43-year-old female that presents with headache with vomiting. Hyper nteion in triage. Denies any visual changes. This initial assessment/diagnostic orders/clinical plan/treatment(s) is/are subject to change based on patient's health status, clinical progression and re- assessment by fellow clinical providers in the ED. Further treatment and workup at subsequent clinical providers discretion. Patient/guardians urged not to elope from the ED as their condition may be serious if not clinically assessed and managed. Initial orders include: 1- Patient sent to [facility] for further evaluation and treatment 2- ;abs 3- CT head
[2018-12-01] MEDS ORDERED: CATAPRES PO ONE (16:05)
[2018-12-01] MEDS ORDERED: CATAPRES ONE (16:07)
[2018-12-01 16:36] LABS: Basophils # (Auto) 0.1 K/mm3 (0.0-0.1); Basophils % (Auto) 1.1 % (0.0-1.8); Eosinophils # (Auto) 0.2 K/mm3 (0.0-0.4); Eosinophils % (Auto) 1.6 % (0.0-4.3); Hematocrit 44.6 % (30.3-42.9); Lymphocytes % (Auto) 15.8 % (13.4-35.0); Mean Corpuscular HGB Conc 34 % (30-34); Mean Corpuscular Volume 88 fl (79-97); Monocytes # (Auto) 0.6 K/mm3 (0.0-0.8); Monocytes % (Auto) 4.8 % (0.0-7.3); Platelet Count 875 K/mm3 (140-440); Red Blood Count 5.08 M/mm3 (3.65-5.03)
[2018-12-01 16:38] LABS: Red Cell Distribution Width 20.6 % (13.2-15.2)
[2018-12-01 16:48] LABS: BUN/Creatinine Ratio 19; Blood Urea Nitrogen 13 mg/dL (7-17); Calcium 9.3 mg/dL (8.4-10.2); Hemolysis Index 11
--- NOTE | 2018-12-01 16:52 | Emergency Department Report ---
ED General Adult HPI - General Chief complaint: Nausea/Vomiting/Diarrhea Stated complaint: N/V Time Seen by Provider: 12/01/18 16:03 Source: patient Mode of arrival: Ambulatory Limitations: No Limitations - History of Present Illness Initial comments: The patient presents to the emergency department with a chief complaint of a headache for the last 2 days. The patient describes the headache as throbbing in nature and denies it being the worst headache of her life. Patient also knows that her blood pressure is elevated and upon arrival to the ED it was 225/103. The patient takes 50 mg metoprolol twice a day all with 10 mg amlodipine daily for her blood pressure and endorses taking it regularly. Patient denies chest pain, shortness breath, or abdominal pain but does endorse nausea and vomiting. -: Gradual Location: head Radiation: non-radiation Severity scale (0 -10): 8 Quality: other (throbbing) Consistency: constant Improves with: none Worsens with: none Associated Symptoms: denies other symptoms Treatments Prior to Arrival: none - Related Data Home Medications Medication Instructions Recorded Confirmed Last Taken traMADol [Ultram 50 MG tab] 50 mg PO Q6HR PRN 12/15/17 07/29/18 12/14/17 Previous Rx's Medication Instructions Recorded Last Taken Type Ibuprofen [Motrin 800 MG tab] 800 mg PO Q8HR PRN #12 tablet 04/06/18 Unknown Rx Ferrous Sulfate [Feosol 325 MG tab] 325 mg PO BID #60 tablet 07/29/18 Unknown Rx Hydroxyurea [Hydrea] 1,000 mg PO BID #60 capsule 07/29/18 Unknown Rx Metoprolol [Lopressor TAB] 50 mg PO BID #60 tablet 07/29/18 Unknown Rx Pantoprazole [Protonix] 40 mg PO QDAY #30 tablet 07/29/18 Unknown Rx amLODIPine [Norvasc] 10 mg PO DAILY #30 tablet 07/29/18 Unknown Rx Butalb/Acetamin/Caff 50-325-40 1 tab PO Q6HR PRN #24 tab 12/01/18 Unknown Rx [Fioricet] Ondansetron [Zofran Odt] 4 mg PO Q4HR PRN #20 tab.rapdis 12/01/18 Unknown Rx Allergies Allergy/AdvReac Type Severity Reaction Status Date / Time No Known Allergies Allergy Verified 12/01/18 15:07 ED Review of Systems ROS: Stated complaint: N/V Other details as noted in HPI Comment: All other systems reviewed and negative Constitutional: denies: chills, fever Eyes: denies: eye pain, eye discharge, vision change ENT: denies: ear pain, throat pain Respiratory: denies: cough, shortness of breath, wheezing Cardiovascular: denies: chest pain, palpitations Endocrine: no symptoms reported Gastrointestinal: denies: abdominal pain, nausea, diarrhea Genitourinary: denies: urgency, dysuria, discharge Musculoskeletal: denies: back pain, joint swelling, arthralgia Skin: denies: rash, lesions Neurological: headache. denies: weakness, paresthesias Psychiatric: denies: anxiety, depression Hematological/Lymphatic: denies: easy bleeding, easy bruising ED Past Medical Hx - Past Medical History Hx Hypertension: Yes Additional medical history: anemia-transfusion, elevated Platlets - Surgical History Additional Surgical History: x 2, elbow surgery,hysterectomy - Social History Smoking Status: Never Smoker Substance Use Type: None - Medications Home Medications: Home Medications Medication Instructions Recorded Confirmed Last Taken Type traMADol [Ultram 50 MG tab] 50 mg PO Q6HR PRN 12/15/17 07/29/18 12/14/17 History Ibuprofen [Motrin 800 MG tab] 800 mg PO Q8HR PRN #12 tablet 04/06/18 07/29/18 Unknown Rx Ferrous Sulfate [Feosol 325 MG tab] 325 mg PO BID #60 tablet 07/29/18 Unknown Rx Hydroxyurea [Hydrea] 1,000 mg PO BID #60 capsule 07/29/18 Unknown Rx Metoprolol [Lopressor TAB] 50 mg PO BID #60 tablet 07/29/18 Unknown Rx Pantoprazole [Protonix] 40 mg PO QDAY #30 tablet 07/29/18 Unknown Rx amLODIPine [Norvasc] 10 mg PO DAILY #30 tablet 07/29/18 Unknown Rx Butalb/Acetamin/Caff 50-325-40 1 tab PO Q6HR PRN #24 tab 12/01/18 Unknown Rx [Fioricet] Ondansetron [Zofran Odt] 4 mg PO Q4HR PRN #20 tab.rapdis 12/01/18 Unknown Rx ED Physical Exam - General Limitations: No Limitations General appearance: alert, in no apparent distress - Head Head exam: Present: atraumatic, normocephalic - Eye Eye exam: Present: normal appearance, PERRL, EOMI - ENT ENT exam: Present: mucous membranes moist - Neck Neck exam: Present: normal inspection - Respiratory Respiratory exam: Present: normal lung sounds bilaterally. Absent: respiratory distress, wheezes, rales - Cardiovascular Cardiovascular Exam: Present: regular rate, normal rhythm. Absent: systolic murmur, diastolic murmur, rubs, gallop - GI/Abdominal GI/Abdominal exam: Present: soft, normal bowel sounds. Absent: distended, tenderness - Extremities Exam Extremities exam: Present: normal inspection - Back Exam Back exam: Present: normal inspection - Neurological Exam Neurological exam: Present: alert, oriented X3, CN II-XII intact. Absent: motor sensory deficit - Psychiatric Psychiatric exam: Present: normal affect, normal mood - Skin Skin exam: Present: warm, dry, intact, normal color. Absent: rash ED Course Vital Signs 12/01/18 12/01/18 12/01/18 16:04 16:50 17:01 Temperature 98.2 F Pulse Rate 78 Respiratory 20 Rate Blood Pressure 230/122 225/103 O2 Sat by Pulse 100 99 99 Oximetry 12/01/18 12/01/18 12/01/18 17:31 18:01 18:15 Temperature Pulse Rate Respiratory Rate Blood Pressure 225/103 196/106 196/106 O2 Sat by Pulse 99 100 100 Oximetry 12/01/18 12/01/18 12/01/18 18:31 18:45 19:00 Temperature Pulse Rate Respiratory Rate Blood Pressure 210/95 210/95 226/114 O2 Sat by Pulse 100 100 100 Oximetry ED Medical Decision Making - Lab Data Result diagrams: 12/01/18 16:13 12/01/18 16:13 Lab Results 12/01/18 12/01/18 Range/Units 16:13 16:13 WBC 12.8 H (4.5-11.0) K/mm3 RBC 5.08 H (3.65-5.03) M/mm3 Hgb 15.0 H (10.1-14.3) gm/dl Hct 44.6 H (30.3-42.9) % MCV 88 (79-97) fl MCH 30 (28-32) pg MCHC 34 (30-34) % RDW 20.6 H (13.2-15.2) % Plt Count 875 H (140-440) K/mm3 Lymph % (Auto) 15.8 (13.4-35.0) % Barber % (Auto) 4.8 (0.0-7.3) % Eos % (Auto) 1.6 (0.0-4.3) % Baso % (Auto) 1.1 (0.0-1.8) % Lymph # 2.0 (1.2-5.4) K/mm3 Barber # 0.6 (0.0-0.8) K/mm3 Eos # 0.2 (0.0-0.4) K/mm3 Baso # 0.1 (0.0-0.1) K/mm3 Seg Neutrophils % 76.7 H (40.0-70.0) % Seg Neutrophils # 9.8 H (1.8-7.7) K/mm3 Sodium 139 (137-145) mmol/L Potassium 4.2 (3.6-5.0) mmol/L Chloride 103.7 (98-107) mmol/L Carbon Dioxide 22 (22-30) mmol/L Anion Gap 18 mmol/L BUN 13 (7-17) mg/dL Creatinine 0.7 (0.7-1.2) mg/dL Estimated GFR > 60 ml/min BUN/Creatinine Ratio 19 % Glucose 82 (65-100) mg/dL Calcium 9.3 (8.4-10.2) mg/dL - Radiology Data Radiology results: report reviewed - Medical Decision Making Catapres was ordered for the patient's hypertension before being seen by me. Catapres was ordered by me. Headache improved with IV Benadryl, steroids, Reglan, and by mouth Fioricet Patient given hydralazine IV for her hypertension Critical Care Time: Yes Critical care time in (mins) excluding proc time.: 35 Critical care attestation.: If time is entered above; I have spent that time in minutes in the direct care of this critically ill patient, excluding procedure time. ED Disposition Clinical Impression: Hypertension, Headache Disposition: DC-01 TO HOME OR SELFCARE Is pt being admited?: No Condition: Stable Instructions: Hypertension (ED), Acute Headache (ED) Additional Instructions: return if worse Referrals: PRIMARY CARE, [Referring] - 3-5 Days [facility] [Provider Group] - 3-5 Days [facility] [Provider Group] - 3-5 Days Time of Disposition: 19:15
--- NOTE | 2018-12-01 16:57 | Cat Scan Report ---
PROCEDURE: CT HEAD/BRAIN WO CON TECHNIQUE: Computerized tomography of the head was performed without contrast material. CT DOSE LENGTH PRODUCT: 805.4 mGycm HISTORY: headache COMPARISONS: None . FINDINGS: No acute air-fluid level visualized in the included air-filled sinuses. Bone windows demonstrate no acute fracture. The brain is without mass, mass effect, hemorrhage, or acute infarct. There is no extra-axial intracranial bleed, brain bleed, or midline shift. The ventricles and sulci are age-appropriate. IMPRESSION: No acute CVA, intracranial bleed, or brain mass This document is electronically signed by Babatunde Pena MD., December 01 2018 04:55:56 PM ET
[2018-12-01] MEDS ORDERED: APRESOLINE IV ONE ×2 (17:06→18:31)
[2018-12-01] MEDS ORDERED: ZOFRAN IV ONE (17:06)
[2018-12-01] MEDS ORDERED: NACL 0.9% 1000 ML 1,000 ML IV ONE (17:06)
[2018-12-01] MEDS ORDERED: SOLU-Medrol IV ONE (17:06)
[2018-12-01] MEDS ORDERED: FIORICET PO ONE (17:06)
[2018-12-01] MEDS ORDERED: REGLAN IV ONE (17:08)
[2018-12-01] MEDS ORDERED: BENADRYL IV ONE (17:08)
[2018-12-01 19:05] VITALS: BP 226/114
== END 2018-12-01 19:37 | disposition home or self-care (01) ==
LOC: ED 15:05
DX: I10 Essential (primary) hypertension (principal); Z98.890 Other specified postprocedural states; Z90.710 Acquired absence of both cervix and uterus
CPT/HCPCS: 36415; 70450; 80048; 85025; 96361; 96374; 96375; 96376; 99291; J0360; J1200; J2405; J2765; J2930; J7030

== ENCOUNTER 2019-03-28 16:56 | Emergency (ER) | payer BC ==
--- NOTE | 2019-03-28 18:03 | Emergency Department Report ---
Blank Doc - Documentation Documentation: 43-year-old female that presents with body aches, chest pain, and SOB. Has been taking blood pressure medications. This initial assessment/diagnostic orders/clinical plan/treatment(s) is/are subject to change based on patient's health status, clinical progression and re-assessment by fellow clinical providers in the ED. Further treatment and workup at subsequent clinical providers discretion. Patient/guardians urged not to elope from the ED as their condition may be serious if not clinically assessed and managed. Initial orders include: 1- Patient sent to MAIN ED for further evaluation and treatment 2- labs 3- EKG 4- CXR
--- NOTE | 2019-03-28 19:19 | XRay Report ---
CHEST 2 VIEWS INDICATION: Chest Pain. COMPARISON: 07/29/2018 FINDINGS: Support devices: None. Heart: Within normal limits. Lungs: No acute air space or interstitial disease. Pleura: No significant pleural effusion. No pneumothorax. Additional findings: None. IMPRESSION: 1. No acute findings. Signer Name: Jacob Emanuel MD Signed: 03/28/2019 7:15 PM Workstation Name: [id number]
[2019-03-28 20:12] LABS: Hematocrit 41.2 % (30.3-42.9); Hemoglobin 13.5 gm/dl (10.1-14.3); Mean Corpuscular HGB Conc 33 % (30-34); Mean Corpuscular Volume 82 fl (79-97); Platelet Count 632 K/mm3 (140-440)
[2019-03-28 20:16] LABS: Red Cell Distribution Width 22.4 % (13.2-15.2)
[2019-03-28 20:23] LABS: INR 1.08 (0.87-1.13)
[2019-03-28 20:24] LABS: Partial Thromboplastin Time 30.9 Sec. (24.2-36.6)
[2019-03-28 20:38] LABS: Alanine Aminotransferase 26 units/L (7-56); Albumin 4.2 g/dL (3.9-5); BUN/Creatinine Ratio 14; Blood Urea Nitrogen 10 mg/dL (7-17); Calcium 9.1 mg/dL (8.4-10.2); Hemolysis Index 5
[2019-03-28 20:59] LABS: Band Neutrophils # (Manual) 0.6 K/mm3; Eosinophils % (Manual) 0 % (0.0-4.3); Total Cells Counted 100
[2019-03-28 21:00] LABS: Poikilocytosis 1+
[2019-03-28 21:01] LABS: Anisocytosis 1+
[2019-03-28 21:02] LABS: Ovalocytes 1+; Platelet Estimate Consistent w Auto
[2019-03-28] MEDS ORDERED: ACETAMINOPHEN W/CODEINE 300-30 MG TAB PO ONE (21:13)
[2019-03-28] MEDS ORDERED: ONDANSETRON 4 MG ODT TAB PO ONE (21:14)
[2019-03-28 21:23] VITALS: BP 180/108
--- NOTE | 2019-03-28 21:38 | Emergency Department Report ---
ED General Adult HPI - General Chief complaint: Pain General Stated complaint: CHEST/BODY PAIN Time Seen by Provider: 03/28/19 18:01 Source: patient Mode of arrival: Ambulatory Limitations: No Limitations - History of Present Illness Initial comments: The patient presents to the emergency department with a chief complaint of substernal chest pain that started yesterday. The patient describes the pain as pressure-like in nature and continuous. Patient also has a history of essential thrombocytopenia and states that this causes her to have body pain. Patient denies any shortness of breath, abdominal pain, or headache. -: Sudden Location: chest Radiation: non-radiation Severity scale (0 -10): 3 Quality: aching Consistency: constant Improves with: none Worsens with: none Associated Symptoms: denies other symptoms Treatments Prior to Arrival: none - Related Data Home Medications Medication Instructions Recorded Confirmed Last Taken traMADol [Ultram 50 MG tab] 50 mg PO Q6HR PRN 12/15/17 07/29/18 12/14/17 Previous Rx's Medication Instructions Recorded Last Taken Type Ibuprofen [Motrin 800 MG tab] 800 mg PO Q8HR PRN #12 tablet 04/06/18 Unknown Rx Ferrous Sulfate [Feosol 325 MG tab] 325 mg PO BID #60 tablet 07/29/18 Unknown Rx Hydroxyurea [Hydrea] 1,000 mg PO BID #60 capsule 07/29/18 Unknown Rx Metoprolol [Lopressor TAB] 50 mg PO BID #60 tablet 07/29/18 Unknown Rx Pantoprazole [Protonix] 40 mg PO QDAY #30 tablet 07/29/18 Unknown Rx amLODIPine [Norvasc] 10 mg PO DAILY #30 tablet 07/29/18 Unknown Rx Butalb/Acetamin/Caff 50-325-40 1 tab PO Q6HR PRN #24 tab 12/01/18 Unknown Rx [Fioricet] Ondansetron [Zofran Odt] 4 mg PO Q4HR PRN #20 tab.rapdis 12/01/18 Unknown Rx HYDROcodone/APAP 5-325 [[place] 1 each PO Q6HR PRN #12 tablet 03/28/19 Unknown Rx 5/325] Ondansetron [Zofran Odt] 4 mg PO Q4HR PRN #20 tab.rapdis 03/28/19 Unknown Rx hydroCHLOROthiazide [Hctz] 12.5 mg PO QDAY #30 capsule 03/28/19 Unknown Rx Allergies Allergy/AdvReac Type Severity Reaction Status Date / Time No Known Allergies Allergy Verified 12/01/18 15:07 ED Review of Systems ROS: Stated complaint: CHEST/BODY PAIN Other details as noted in HPI Comment: All other systems reviewed and negative Constitutional: denies: chills, fever Eyes: denies: eye pain, eye discharge, vision change ENT: denies: ear pain, throat pain Respiratory: denies: cough, shortness of breath, wheezing Cardiovascular: chest pain. denies: palpitations Endocrine: no symptoms reported Gastrointestinal: denies: abdominal pain, nausea, diarrhea Genitourinary: denies: urgency, dysuria, discharge Musculoskeletal: denies: back pain, joint swelling, arthralgia Skin: denies: rash, lesions Neurological: denies: headache, weakness, paresthesias Psychiatric: denies: anxiety, depression Hematological/Lymphatic: denies: easy bleeding, easy bruising ED Past Medical Hx - Past Medical History Hx Hypertension: Yes Additional medical history: anemia-transfusion, elevated Platlets - Surgical History Additional Surgical History: x 2, elbow surgery,hysterectomy - Social History Smoking Status: Never Smoker Substance Use Type: None - Medications Home Medications: Home Medications Medication Instructions Recorded Confirmed Last Taken Type traMADol [Ultram 50 MG tab] 50 mg PO Q6HR PRN 12/15/17 07/29/18 12/14/17 History Ibuprofen [Motrin 800 MG tab] 800 mg PO Q8HR PRN #12 tablet 04/06/18 07/29/18 Unknown Rx Ferrous Sulfate [Feosol 325 MG tab] 325 mg PO BID #60 tablet 07/29/18 Unknown Rx Hydroxyurea [Hydrea] 1,000 mg PO BID #60 capsule 07/29/18 Unknown Rx Metoprolol [Lopressor TAB] 50 mg PO BID #60 tablet 07/29/18 Unknown Rx Pantoprazole [Protonix] 40 mg PO QDAY #30 tablet 07/29/18 Unknown Rx amLODIPine [Norvasc] 10 mg PO DAILY #30 tablet 07/29/18 Unknown Rx Butalb/Acetamin/Caff 50-325-40 1 tab PO Q6HR PRN #24 tab 12/01/18 Unknown Rx [Fioricet] Ondansetron [Zofran Odt] 4 mg PO Q4HR PRN #20 tab.rapdis 12/01/18 Unknown Rx HYDROcodone/APAP 5-325 [[place] 1 each PO Q6HR PRN #12 tablet 03/28/19 Unknown Rx 5/325] Ondansetron [Zofran Odt] 4 mg PO Q4HR PRN #20 tab.rapdis 03/28/19 Unknown Rx hydroCHLOROthiazide [Hctz] 12.5 mg PO QDAY #30 capsule 03/28/19 Unknown Rx ED Physical Exam - General Limitations: No Limitations General appearance: alert, in no apparent distress - Head Head exam: Present: atraumatic, normocephalic - Eye Eye exam: Present: normal appearance, PERRL, EOMI - ENT ENT exam: Present: mucous membranes moist - Neck Neck exam: Present: normal inspection - Respiratory Respiratory exam: Present: normal lung sounds bilaterally. Absent: respiratory distress - Cardiovascular Cardiovascular Exam: Present: regular rate, normal rhythm. Absent: systolic murmur, diastolic murmur, rubs, gallop - GI/Abdominal GI/Abdominal exam: Present: soft, normal bowel sounds. Absent: distended, tenderness - Extremities Exam Extremities exam: Present: normal inspection - Back Exam Back exam: Present: normal inspection - Neurological Exam Neurological exam: Present: alert, oriented X3, CN II-XII intact. Absent: motor sensory deficit - Psychiatric Psychiatric exam: Present: normal affect, normal mood - Skin Skin exam: Present: warm, dry, intact, normal color. Absent: rash ED Course Vital Signs 03/28/19 03/28/19 18:02 21:21 Temperature 98.3 F Pulse Rate 81 97 H Respiratory 19 22 Rate Blood Pressure 231/108 180/108 O2 Sat by Pulse 99 Oximetry ED Medical Decision Making - Lab Data Result diagrams: 03/28/19 19:31 03/28/19 19:31 Lab Results 03/28/19 03/28/19 03/28/19 Range/Units 19:31 19:31 19:31 WBC 12.2 H (4.5-11.0) K/mm3 RBC 5.00 (3.65-5.03) M/mm3 Hgb 13.5 (10.1-14.3) gm/dl Hct 41.2 (30.3-42.9) % MCV 82 (79-97) fl MCH 27 L (28-32) pg MCHC 33 (30-34) % RDW 22.4 H (13.2-15.2) % Plt Count 632 H (140-440) K/mm3 Add Manual Diff Complete Total Counted 100 Seg Neuts % (Manual) 80.0 H (40.0-70.0) % Band Neutrophils % 5.0 % Lymphocytes % (Manual) 12.0 L (13.4-35.0) % Reactive Lymphs % (Man) 0 % Monocytes % (Manual) 1.0 (0.0-7.3) % Eosinophils % (Manual) 0 (0.0-4.3) % Basophils % (Manual) 1.0 (0.0-1.8) % Metamyelocytes % 1.0 % Myelocytes % 0 % Promyelocytes % 0 % Blast Cells % 0 % Nucleated RBC % Not Reportable Seg Neutrophils # Man 9.8 H (1.8-7.7) K/mm3 Band Neutrophils # 0.6 K/mm3 Lymphocytes # (Manual) 1.5 (1.2-5.4) K/mm3 Abs React Lymphs (Man) 0.0 K/mm3 Monocytes # (Manual) 0.1 (0.0-0.8) K/mm3 Eosinophils # (Manual) 0.0 (0.0-0.4) K/mm3 Basophils # (Manual) 0.1 (0.0-0.1) K/mm3 Metamyelocytes # 0.1 K/mm3 Myelocytes # 0.0 K/mm3 Promyelocytes # 0.0 K/mm3 Blast Cells # 0.0 K/mm3 WBC Morphology Not Reportable Hypersegmented Neuts Not Reportable Hyposegmented Neuts Not Reportable Hypogranular Neuts Not Reportable Smudge Cells Not Reportable Toxic Granulation Not Reportable Toxic Vacuolation Not Reportable Dohle Bodies Not Reportable Pelger-Huet Anomaly Not Reportable Harpal Rods Not Reportable Platelet Estimate Consistent w auto Clumped Platelets Not Reportable Plt Clumps, EDTA Not Reportable Large Platelets Not Reportable Giant Platelets Not Reportable Platelet Satelliting Not Reportable Plt Morphology Comment Not Reportable RBC Morphology Not Reportable Dimorphic RBCs Not Reportable Polychromasia Not Reportable Hypochromasia Not Reportable Poikilocytosis 1+ Anisocytosis 1+ Microcytosis Not Reportable Macrocytosis Not Reportable Spherocytes Not Reportable Pappenheimer Bodies Not Reportable Sickle Cells Not Reportable Target Cells Not Reportable Tear Drop Cells Not Reportable Ovalocytes 1+ Helmet Cells Not Reportable Ruby-Sutton-Alpine Bodies Not Reportable Alta Rings Not Reportable [place] Cells Not Reportable Bite Cells Not Reportable Crenated Cell Not Reportable Elliptocytes 1+ Acanthocytes (Spur) Not Reportable Rouleaux Not Reportable Hemoglobin C Crystals Not Reportable Schistocytes Not Reportable Malaria parasites Not Reportable Rakesh Bodies Not Reportable Hem Pathologist Commnt No PT 13.7 (12.2-14.9) Sec. INR 1.08 (0.87-1.13) APTT 30.9 (24.2-36.6) Sec. Sodium 142 (137-145) mmol/L Potassium 3.5 L (3.6-5.0) mmol/L Chloride 105.3 (98-107) mmol/L Carbon Dioxide 24 (22-30) mmol/L Anion Gap 16 mmol/L BUN 10 (7-17) mg/dL Creatinine 0.7 (0.7-1.2) mg/dL Estimated GFR > 60 ml/min BUN/Creatinine Ratio 14 % Glucose 89 (65-100) mg/dL Calcium 9.1 (8.4-10.2) mg/dL Total Bilirubin 0.60 (0.1-1.2) mg/dL AST 21 (5-40) units/L ALT 26 (7-56) units/L Alkaline Phosphatase 88 (35-129) units/L Troponin T < 0.010 (0.00-0.029) ng/mL Total Protein 7.7 (6.3-8.2) g/dL Albumin 4.2 (3.9-5) g/dL Albumin/Globulin Ratio 1.2 % - EKG Data -: EKG Interpreted by Me EKG shows normal: sinus rhythm Rate: normal - Radiology Data Radiology results: report reviewed - Medical Decision Making Initial EKG was done at 1745 and had a reading of an acute NJ although no signs of an acute NJ are present on the EKG. EKG was sent to the on-call mud engineer who is Dr. Jw Bates who agreed that it was not a STEMI Discussed with patient that her chest pain is likely secondary to her blood pressure of 230/108 on arrival H and states that she takes 50 mg metoprolol and 10 mg of amlodipine daily Critical care attestation.: If time is entered above; I have spent that time in minutes in the direct care of this critically ill patient, excluding procedure time. ED Disposition Clinical Impression: Chest pain, Hypertension, Myalgia Disposition: TO HOME OR SELFCARE Is pt being admited?: No Does the pt Need Aspirin: No Condition: Stable Instructions: Chest Pain (ED), Hypertension (ED), Musculoskeletal Pain (ED), Noncardiac Chest Pain (ED) Additional Instructions: Please begin to take the hydrochlorothiazide as discussed Remember to take half dose of metoprolol as we discussed Please return if symptoms become worse Prescriptions: hydroCHLOROthiazide [Hctz] 12.5 mg PO QDAY #30 capsule Referrals: PRIMARY CARE, [Primary Care Provider] - 3-5 Days LAZARO ROCHE MD [Staff Physician] - 3-5 Days Time of Disposition: 21:45
== END 2019-03-28 22:04 | disposition home or self-care (01) ==
LOC: ED 16:56
DX: R07.89 Other chest pain (principal); M79.10 Myalgia, unspecified site; I10 Essential (primary) hypertension; Z90.710 Acquired absence of both cervix and uterus; Z98.890 Other specified postprocedural states; Z79.899 Other long term (current) drug therapy
CPT/HCPCS: 36415; 71046; 80053; 84484; 85007; 85025; 85610; 85730; 93005; 93010; Q0162